=== PATIENT | female | born 1945 | race Caucasian/White ===

== ENCOUNTER 2016-08-28 19:54 | Inpatient (IN) | payer MEDICARE ==
[2016-08-28] MEDS ORDERED: SODIUM CHLORIDE 0.9% 1,000 ML IV ONE (20:16)
[2016-08-28] MEDS ORDERED: ONDANSETRON 4 MG/2 ML VIAL IVP STA (20:21)
[2016-08-28] MEDS ORDERED: HYDROmorphone 1 MG/ML 1 ML SYRINGE IVP STA ×2 (20:21→21:39)
--- NOTE | 2016-08-28 20:30 | ED ---
Abdominal Pain HPI - General Source: patient, RN notes reviewed Mode of arrival: wheelchair Limitations: no limitations <Rosemayr Gray - Last Filed: 08/28/16 21:41> <Donny Perry - Last Filed: 08/28/16 21:46> - General Chief Complaint: Abdominal Pain Stated Complaint: Abd Pain Time Seen by Provider: 08/28/16 20:10 - History of Present Illness Initial Comments: Patient is a 70 year-old female presents to the emergency room for evaluation of abdominal pain. Patient states she has had multiple abdominal surgeries in the past. Patient states she had an ileostomy placed from ulcerative colitis [address] [facility]. Patient states about 3 years ago she had a bowel obstruction. Patient states she feels like she has another bowel obstruction now. Patient states she had popcorn last night and began feeling extreme pain in her abdomen. Patient states worsen today. Patient states that her ileostomy bag has been empty the entire day. Patient states is very unusual for her. Patient also states she's been extremely nauseous. Patient states took 10 mg of Compazine for arrival with no relief of symptoms. Patient denies chest pain or shortness of breath. Patient assumes or chills. Patient denies headache or dizziness. (Rosemary Gray) - Related Data Home Medications Medication Instructions Recorded Confirmed Acyclovir [Zovirax] 200 mg PO Q6HR 08/17/13 08/29/15 Chlorzoxazone [Parafon Forte Dsc] 500 mg PO Q6HR 08/17/13 08/29/15 Meclizine [Antivert] 12.5 mg PO QID PRN 08/17/13 08/29/15 Pantoprazole Sodium [Protonix] 40 mg PO HS 08/17/13 08/29/15 Prochlorperazine [Compazine] 10 mg PO Q6H PRN 08/17/13 08/29/15 Solifenacin Succinate [Vesicare] 10 mg PO QAM 08/17/13 08/29/15 diphenhydrAMINE [Benadryl] 50 mg PO QID PRN 08/17/13 08/29/15 Biotin 5 mg PO QID 10/28/14 08/29/15 Fexofenadine HCl [Amna Allergy] 30 mg PO DAILY PRN 10/28/14 08/29/15 HYDROcodone/APAP 10-325MG [Bath 1 each PO Q6H PRN 10/28/14 08/29/15 10-325] Diclofenac Sodium [Voltaren] 50 mg PO QID 11/21/14 08/29/15 Zolpidem [Ambien] 10 mg PO HS PRN 11/21/14 08/29/15 Cyanocobalamin [Vitamin B-12] 1,000 mcg PO HS 05/21/15 08/29/15 Magnesium 500 mg PO DAILY 05/21/15 08/29/15 Potassium 99 mg PO DAILY 05/21/15 08/29/15 Previous Rx's Medication Instructions Recorded Ondansetron Odt [Zofran ODT] 4 mg PO Q8HR PRN #10 tab 08/29/15 Allergies Allergy/AdvReac Type Severity Reaction Status Date / Time aspirin Allergy Unknown Verified 08/28/16 20:08 codeine Allergy Unknown Verified 08/28/16 20:08 gemfibrozil [From Lopid] Allergy Anaphylaxis Verified 08/28/16 20:08 latex Allergy Swelling Verified 08/28/16 20:08 meloxicam [From Mobic] Allergy Rash/Hives Verified 08/28/16 20:08 Penicillins Allergy Rash/Hives Verified 08/28/16 20:08 propranolol HCl Allergy Unknown Verified 08/28/16 20:08 [From Inderal [place]] sucralfate [From Carafate] Allergy Anaphylaxis Verified 08/28/16 20:08 metronidazole [From Flagyl] AdvReac thrush Verified 08/28/16 20:08 propoxyphene HCl AdvReac Nausea & Verified 08/28/16 20:08 [From Darvon] Vomiting Review of Systems ROS Other: All systems not noted in ROS Statement are negative. <Rosemary Gray - Last Filed: 08/28/16 21:41> ROS Other: All systems not noted in ROS Statement are negative. <Donny Perry - Last Filed: 08/28/16 21:46> ROS Statement: Those systems with pertinent positive or pertinent negative responses have been documented in the HPI. Past Medical History Past Medical History: Asthma, COPD, CVA/TIA, Hyperlipidemia, Hypertension, Myocardial Infarction ([place]), Syncope Additional Past Medical History / Comment(s): Other HX: legally blind in left eye; eye sx="near sighted in 1 eye & far sighted in the other", ulcerative colitis,. bilateral carotid blockages being monitored by Dr. 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 Additional HX: low back pain following an injury many years ago after a syncopal episode at the top of stairs caused her to fall backwards down the stairs. She was 3 yrs in a hospital bed and 7. years in a w/c then learned to walk again. Last Myocardial Infarction Date:: 2009 History of Any Multi-Drug Resistant Organisms: None Reported Past Surgical History: Appendectomy, Cholecystectomy, Heart Catheterization, Hernia Repair, Hysterectomy, Joint Replacement, Orthopedic Surgery, Tonsillectomy Additional Past Surgical History / Comment(s): 2010 cath which was clear, low back surgeries X 2 and at least 20 procedures on her back, ileostomy, total left knee, abdominal hernia repair X 2, bilateral eyes cataracts removed, right shoulder sx x 2; large growth on back of head & inside of cheek removed Past Anesthesia/Blood Transfusion Reactions: Postoperative Nausea & Vomiting ( PONV) Additional Past Anesthesia/Blood Transfusion Reaction / Comment(s): Pt states she does not have PONV with every surgery- just sometimes. She also states her motion sickness is improving with age. Past Psychological History: No Psychological Hx Reported, PTSD Additional Psychological History / Comment(s): Pt lives at home with her and their pomeranian dog. She has weakness and low back pain and ambulates short distances only. The past few months she has had so much weakness, she is mostly. staying in bed. She does have a walker and a wheelchair. She also has a cane if she can find it; uses wheelchair outside of home Smoking Status: Former smoker Past Alcohol Use History: None Reported Additional Past Alcohol Use History / Comment(s): QUIT 30 YEARS AGO Past Drug Use History: None Reported - Past Family History Father Family Medical History: Cancer, CVA/TIA, Myocardial Infarction ([place]) Additional Family Medical History / Comment(s): Cancer was skin cancer "about 30 times". Mother Family Medical History: Cancer, Myocardial Infarction ([place]) Additional Family Medical History / Comment(s): Mother had lung, uterine and breast cancer. Sister(s) Family Medical History: Cancer Additional Family Medical History / Comment(s): leukemia, of stroke <Rosemary Gray - Last Filed: 08/28/16 21:41> General Exam Limitations: no limitations General appearance: alert, anxious Head exam: Present: atraumatic, normocephalic, normal inspection Eye exam: Present: normal appearance ENT exam: Present: normal exam Neck exam: Present: normal inspection Respiratory exam: Present: normal lung sounds bilaterally. Absent: respiratory distress Cardiovascular Exam: Present: regular rate, normal rhythm, normal heart sounds GI/Abdominal exam: Present: tenderness (Diffuse tenderness on palpation), other (Ileostomy bag in place) Extremities exam: Present: normal inspection Back exam: Present: normal inspection Neurological exam: Present: alert, oriented X3, CN II-XII intact, normal gait Psychiatric exam: Present: normal affect, normal mood Skin exam: Present: warm, dry, intact, normal color. Absent: rash <Rosemary Gray - Last Filed: 08/28/16 21:41> <Donny Perry - Last Filed: 08/28/16 21:46> - General Exam Comments Initial Comments: Laying in exam room, anxious secondary to pain (Rosemary Gray) Medical Decision Making - Lab Data Result diagrams: 08/28/16 20:49 08/28/16 20:49 <Rosemary Gray - Last Filed: 08/28/16 21:41> - Lab Data Result diagrams: 08/28/16 20:49 08/28/16 20:49 <Donny Perry - Last Filed: 08/28/16 21:46> - Medical Decision Making X-rays show small bowel obstruction. I discussed the case with Dr. Monet, the patient's surgeon is requesting a CAT scan at this time as the patient is being admitted. Also consultation with Dr. Cartagena for general medical care. Dr. Cartagena was notified. Dr. Perry (Donny Perry) - Lab Data Lab Results 08/28/16 08/28/16 08/28/16 Range/Units 20:49 20:49 20:49 WBC 10.4 (3.8-10.6) k/uL RBC 3.81 (3.80-5.40) m/uL Hgb 10.7 L (11.4-16.0) gm/dL Hct 33.2 L (34.0-46.0) % MCV 87.1 (80.0-100.0) fL MCH 28.1 (25.0-35.0) pg MCHC 32.3 (31.0-37.0) g/dL RDW 13.9 (11.5-15.5) % Plt Count 373 (150-450) k/uL Neutrophils % 83 % Lymphocytes % 10 % Monocytes % 5 % Eosinophils % 1 % Basophils % 0 % Neutrophils # 8.6 H (1.3-7.7) k/uL Lymphocytes # 1.0 (1.0-4.8) k/uL Monocytes # 0.5 (0-1.0) k/uL Eosinophils # 0.1 (0-0.7) k/uL Basophils # 0.0 (0-0.2) k/uL Hypochromasia Moderate Poikilocytosis Slight Sodium 133 L (137-145) mmol/L Potassium 4.0 (3.5-5.1) mmol/L Chloride 99 (98-107) mmol/L Carbon Dioxide 21 L (22-30) mmol/L Anion Gap 13 mmol/L BUN 11 (7-17) mg/dL Creatinine 0.83 (0.52-1.04) mg/dL Est GFR (MDRD) Af Amer >60 (>60 ml/min/1.73 sqM) Est GFR (MDRD) Non-Af >60 (>60 ml/min/1.73 sqM) Glucose 110 H (74-99) mg/dL Plasma Lactic Acid Kaveh 2.8 H* (0.7-2.0) mmol/L Calcium 9.2 (8.4-10.2) mg/dL Magnesium 1.6 (1.6-2.3) mg/dL Total Bilirubin 0.6 (0.2-1.3) mg/dL AST 52 H (14-36) U/L ALT 30 (9-52) U/L Alkaline Phosphatase 87 (38-126) U/L Total Protein 7.1 (6.3-8.2) g/dL Albumin 4.5 (3.5-5.0) g/dL Amylase 59 (30-110) U/L Lipase 79 (23-300) U/L Disposition Decision Date: 08/28/16 <Rosemary Gray - Last Filed: 08/28/16 21:41> <Donny Perry - Last Filed: 08/28/16 21:46> Clinical Impression: Small bowel obstruction Disposition: ADMITTED IP TO THIS [facility] Condition: Stable Referrals: Jim Ward MD [Primary Care Provider] - 1-2 days
[2016-08-28 21:06] LABS: Basophils % (A) 0 %; CH 27.7; Eosinophils # (A) 0.1 k/uL (0-0.7); Eosinophils % (A) 1 %; HCT 33.2 % (34.0-46.0); HDW 3.46; HGB 10.7 gm/dL (11.4-16.0); Hypochromasia Moderate; Luc # (Auto) 0.13; Luc % (Auto) 1; Lymphocytes % (A) 10 %; MCH 28.1 pg (25.0-35.0); MCHC 32.3 g/dL (31.0-37.0); MCV 87.1 fL (80.0-100.0); Mean Platelet Volume 6.4; Monocytes # (A) 0.5 k/uL (0-1.0); Monocytes % (A) 5 %; Neutrophils # (A) 8.6 k/uL (1.3-7.7); Neutrophils % (A) 83 %; Poikilocytosis Slight; RBC 3.81 m/uL (3.80-5.40); RDW 13.9 % (11.5-15.5); WBC 10.4 k/uL (3.8-10.6); WBC (Perox) 9.82
[2016-08-28 21:18] LABS: ALT 30 U/L (9-52); AST 52 U/L (14-36); Alkaline Phosphatase 87 U/L (38-126); Amylase 59 U/L (30-110); Anion Gap 13 mmol/L; Blood Urea Nitrogen 11 mg/dL (7-17); Calcium 9.2 mg/dL (8.4-10.2); Carbon Dioxide 21 mmol/L (22-30); Chloride 99 mmol/L (98-107); Glucose 110 mg/dL (74-99); Magnesium 1.6 mg/dL (1.6-2.3); Non-African American GFR(MDRD) >60 (>60 ml/min/1.73 sqM); Sodium 133 mmol/L (137-145); Total Bilirubin 0.6 mg/dL (0.2-1.3); Total Protein 7.1 g/dL (6.3-8.2)
--- NOTE | 2016-08-28 21:19 | XR ---
EXAMINATION TYPE: XR KUB DATE OF EXAM: 08/28/2016 9:04 PM COMPARISON: NONE INDICATION: TECHNIQUE: Single view abdomen upright abdomen FINDINGS: Multiple air-fluid levels are within small bowel loops. Correlate for small bowel obstruction. No col onic bowel gas is evident. Scoliosis is present. Psoas margins are normal. Organomegaly is not evident. There are advanced degen erative changes at the bilateral hips. IMPRESSION: 1. Multiple air-fluid levels suspicious for small bowel obstruction. Report was called to emergency r oom by Dr. Posada by telephone at time of interpretation 2115 hours 08/31/2016
[2016-08-28] MEDS ORDERED: NALOXONE 0.4 MG/ML 1 ML VIAL IV PRN (21:35)
[2016-08-28] MEDS ORDERED: ONDANSETRON 4 MG/2 ML VIAL IVP PRN (21:35)
[2016-08-28] MEDS ORDERED: IOHEXOL 350 MG/ML 25 ML BOTTLE (ORAL USE) PO PRN (21:38)
[2016-08-28] MEDS ORDERED: RX INFO: IV CONTRAST WAS GIVEN 1 EACH MISC MISCELLANE PRN (21:38)
[2016-08-28] MEDS ORDERED: METOCLOPRAMIDE 5 MG/ML 2 ML VIAL IVP STA (22:31)
[2016-08-28] MEDS ORDERED: DIAZEPAM 5 MG/ML 2 ML SYRINGE IVP STA (22:42)
--- NOTE | 2016-08-28 23:55 | CT ---
EXAM: CT Abdomen and Pelvis With Intravenous Contrast CLINICAL HISTORY: Reason: Pain TECHNIQUE: Axial computed tomography images of the abdomen and pelvis with intravenous contrast. CTDI is 29.00 mGy and DLP is 1128.80 mGy-cm. This CT exam was performed using one or more of the following dose reduction techniques: automated exposure control, adjustment of the mA and/or kV according to patient size, and/or use of iterative reconstruction technique. COMPARISON: 02/22/15 CT. FINDINGS: Lower thorax: Stable linear atelectasis/scarring at the lung bases, and multifocal coronary artery calcification. ABDOMEN: Liver: There is again generalized hepatic steatosis, that has increased in degree. Gallbladder and bile ducts: Unremarkable. No calcified stones. No ductal dilation. Pancreas: Unremarkable. No mass. No ductal dilation. Spleen: Unremarkable. No splenomegaly. Adrenals: Unremarkable. No mass. Kidneys and ureters: Kidney stable including small posterior left renal cyst and bilateral renal parenchymal scarring. No hydronephrosis. Stomach and bowel: There is again a large left anterolateral ventral wall small bowel containing hernia, just lateral to the diverting ostomy site. There are now dilated small bowel loops present within the abdomen and pelvis, including distal small bowel feces within the loop just deep to the ostomy site, suggesting the presence of small bowel obstruction perhaps due to stricture or wall thickening of the ostomy loop. Interval resection of remaining distal colon, now with total colectomy. Prior surgery at the GE junction. Appendix: See above. PELVIS: Bladder: Unremarkable. No mass. Reproductive: Post hysterectomy. ABDOMEN and PELVIS: Intraperitoneal space: There is again a small amount of free fluid present. No abscess or free air. Bones/joints: There is again mild lumbar levoscoliosis with multilevel degenerative changes throughout the spine and also notably within both hips. Sclerotic density to the right of midline within L1 is unchanged. Alignment stable including grade 1 anterolisthesis at L3-4 and L4-5. Vasculature: No abdominal aortic aneurysm. Lymph nodes: No enlarged lymph nodes. IMPRESSION: 1. New findings of small bowel obstruction at the level of the left lower quadrant ostomy site, as above. 2. There is again a small volume of free fluid without evidence of free air, abscess or pneumatosis. 3. Interval resection of the remaining distal colon. 4. Interval increase in hepatic steatosis.
[2016-08-29] MEDS: HYDROmorphone 1 MG/ML 1 ML SYRINGE IV PRN ×8 (00:39→22:36)
[2016-08-29] MEDS: SODIUM CHLORIDE 0.9% 1,000 ML IV SCH ×3 (04:49→22:36)
[2016-08-29] MEDS ORDERED: ONDANSETRON 4 MG/2 ML VIAL IVP PRN (07:30)
[2016-08-29] MEDS ORDERED: ONDANSETRON 4 MG/2 ML VIAL ONE (07:35)
[2016-08-29] MEDS: ONDANSETRON 4 MG/2 ML VIAL IVP PRN ×4 (07:40→22:37)
[2016-08-29 09:23] LABS: Basophils % (A) 0 %; CH 27.1; CHCM 30.3; Eosinophils % (A) 0 %; HCT 37.5 % (34.0-46.0); HGB 11.8 gm/dL (11.4-16.0); Hypochromasia Marked; Immature Gran Flag Slight; Luc % (Auto) 1; Lymphocytes % (A) 12 %; MCH 28.2 pg (25.0-35.0); MCHC 31.4 g/dL (31.0-37.0); MCV 89.8 fL (80.0-100.0); Mean Platelet Volume 7.5; Monocytes # (A) 0.5 k/uL (0-1.0); Monocytes % (A) 6 %; Neutrophils # (A) 6.9 k/uL (1.3-7.7); Neutrophils % (A) 80 %; RBC 4.18 m/uL (3.80-5.40); RDW 14.1 % (11.5-15.5); WBC 8.5 k/uL (3.8-10.6); WBC (Perox) 8.53
[2016-08-29 09:38] LABS: ALT 85 U/L (9-52); AST 163 U/L (14-36); Alkaline Phosphatase 103 U/L (38-126); Anion Gap 13 mmol/L; Blood Urea Nitrogen 12 mg/dL (7-17); Calcium 9.2 mg/dL (8.4-10.2); Carbon Dioxide 21 mmol/L (22-30); Chloride 103 mmol/L (98-107); Glucose 126 mg/dL (74-99); Non-African American GFR(MDRD) >60 (>60 ml/min/1.73 sqM); Potassium 4.2 mmol/L (3.5-5.1); Sodium 137 mmol/L (137-145); Total Bilirubin 0.8 mg/dL (0.2-1.3); Total Protein 7.2 g/dL (6.3-8.2)
--- NOTE | 2016-08-29 10:01 | P.CON ---
Consult Note - . Assessment/Plan:: Chief complaint: Abdominal pain History of present illness: The patient is a 70-year-old female who presented to the emergency room yesterday with repeat episodes of abdominal discomfort and pain associated with recurrent nausea and vomiting. No hematochezia or blood in her ileostomy. Patient does have a ileostomy in place and throughout the day yesterday and throughout the night she has not had any production. She relates eating some popcorn prior to the episode. Patient does have a history of ulcerative colitis for which she has had the ileostomy in place and had surgery at [facility] initially about 7 years before and more recently 3 years ago she apparently had some sort of obstruction and has had further surgery for removal of the rest of her colon and hernia repair. Past medical history: As mentioned above patient has had the surgeries and history of ulcerative colitis. Ileostomy. There is a history of seizure disorder. History of gastroparesis. Previous history of hypertension Patient has had chronic pain syndrome regarding diffuse degenerative joint disease and back pain for which she uses analgesics and anti-inflammatory medication regularly. Gastroesophageal reflux. Recurrent vertigo for which she uses meclizine Hypercholesterolemia Previous smoking history and has had previous episodes of asthma and pneumonia. Urinary incontinence Questionable history of myocardial infarction. History of carotid vascular disease followed by Dr. Pappas. Question of history of previous TIA. Previous surgical history: Includes a previous appendectomy, cholecystectomy, hernia repair, hysterectomy and tonsillectomy. The patient also had bladder suspension surgery Previous lap band surgery which has subsequently been removed Vagotomy Previous lumbar surgery ALLERGIES and intolerances: Atorvastatin, Keflex and penicillins, Inderal and codeine. Lopid. Latex ALLERGY. Home medications: Acyclovir 200 mg every 6 hours for recurrent cold sores Parafon forte 500 mg every 6 hours Antivert 12.5 daily 4 times a day as needed for dizziness Protonix 40 mg at at bedtime Compazine 10 mg every 6 hours as needed for nausea and vomiting Vesicare 10 mg for incontinence Benadryl 50 mg 4 times a day if needed for itching or rash Biotin 5 mg 4 times a day Fexofenadine as needed for ALLERGY [place] 10-325 one every 6 hours for pain Voltaren 50 mg 4 times a day Ambien 10 mg at at bedtime for sleep as needed Vitamin B12 thousand units at at bedtime Magnesium 500 mg daily and potassium 99 mg daily. Family history: Positive for history of coronary artery disease and breast cancer in her mother. History of uterine cancer and diabetes. Social history: Patient lives locally with her . She is a former smoker but quit 3-5 years ago. Physical examination: The patient lying in bed. In no acute distress. Vital signs reveal temperature 98.1 with a pulse of 96, regular. Respirations 15 and nonlabored. Blood pressure 98/61 and she is 95% saturated on room air. Head and neck exam unremarkable. Neck supple without adenopathy or definitive bruits auscultated. Breasts exam did not reveal any palpable lesions. Lungs clear to auscultation. Heart tones regular without murmurs or rubs appreciated. Abdomen reveals ileostomy present in the left lower quadrant with some lateral bulging. Bowel sounds are hypoactive. There is some tenderness diffusely to palpation. No rebound guarding or masses detected. Pelvic and rectal deferred. Extremities reveal no edema. Neurologic exam reveals surgically alert and oriented. Cranial nerves intact. Moving all extremities without focal weakness noted. Laboratory results: White count is been between 8 and 10,000. Hemoglobin on presentation 10.7 and this morning 11.8. Platelet count good at 332. Sodium 137 this morning with potassium 4.2 and a CO2 content of 21. Blood urea nitrogen of 12 with a creatinine 0.78 giving her GFR greater than 60. Blood sugar 126. Initial plasma lactic acid to level 2.8. AST value has risen from 50-263 this morning and ALT on admission was 30 and is now at 85. Amylase and lipase were normal. Albumin 4.4. EKG revealed a regular sinus rhythm without evidence of acute changes. Radiologic studies: Patient had a abdominal x-ray which revealed multiple air-fluid levels which was suspicious for small bowel obstruction. Subsequent CAT scan of the abdomen and pelvis shows consistent with small bowel obstruction at the level of the left quadrant ostomy site. No definite evidence for abscess. Impressions: Overall this is a 70-year-old female appears to present with small bowel obstruction. Patient does have history of previous ulcerative colitis and ileostomy. She does have an elevated lactic acid level likely related to hypoperfusion and dehydration from the repetitive nausea and vomiting. She does have other comorbidities as listed in the past medical history above. Plans: Patient will be evaluated by surgery. At this point clinically cardiovascular status appears stable if surgery is needed. Laboratory values also stable with normal electrolytes and renal function. This was discussed with patient at bedside. Questions answered. EKG shows no evidence of any acute ischemic changes.
--- NOTE | 2016-08-29 10:34 | P.GSHP ---
History of Present Illness H&P Date: 08/29/16 Chief Complaint: Bowel obstruction Patient minute through the emergency department last night with bowel obstruction. The patient has a history of previous ulcerative colitis. In the past she underwent subtotal colectomy with ileostomy. She has undergone several surgeries for that including ileostomy hernia repair with movement of the stoma. Last year she was having frequent episodes of rectal bleeding from her rectal stump. She was seen at [facility] and underwent resection of the majority of the remainder of her rectal stump. She was in her normal state of health until Tuesday evening when she started noticing some crampy abdominal pain. Simultaneously she noticed decreased ostomy output. The patient said that she had a large volume of popcorn that day and has had issues with that in the past. She does have a known peristomal hernia. That has remained soft. She is still not had any significant fluid or flatus from the ileostomy at this time. CAT scan was performed which shows dilated bowel loops all the way up to the stoma. There is some feculent appearing material in the distal small bowel that I suspect represents ingested food. She has had episodes of nausea and vomiting. Attempts at nasogastric tube placement were unsuccessful and she is refusing any further attempts at this time. - Review of Systems Comment: The patient denies any acute changes in his vision or hearing, no dysphagia or odynophagia, no chest pain or shortness of breath, no dysuria or hematuria, no headache, no runny nose, no rectal bleeding or melena, no unexplained weight loss Past Medical History Past Medical History: Asthma, COPD, CVA/TIA, Hyperlipidemia, Hypertension, Myocardial Infarction ([place]), Syncope Additional Past Medical History / Comment(s): Other HX: legally blind in left eye; eye sx="near sighted in 1 eye & far sighted in the other", ulcerative colitis,. bilateral carotid blockages being monitored by Dr. 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 Additional HX: low back pain following an injury many years ago after a syncopal episode at the top of stairs caused her to fall backwards down the stairs. She was 3 yrs in a hospital bed and 7. years in a w/c then learned to walk again. Last Myocardial Infarction Date:: 2009 History of Any Multi-Drug Resistant Organisms: None Reported Past Surgical History: Appendectomy, Cholecystectomy, Heart Catheterization, Hernia Repair, Hysterectomy, Joint Replacement, Orthopedic Surgery, Tonsillectomy Additional Past Surgical History / Comment(s): 2010 cath which was clear, low back surgeries X 2 and at least 20 procedures on her back, ileostomy, total left knee, abdominal hernia repair X 2, bilateral eyes cataracts removed, right shoulder sx x 2; large growth on back of head & inside of cheek removed Past Anesthesia/Blood Transfusion Reactions: Postoperative Nausea & Vomiting ( PONV) Additional Past Anesthesia/Blood Transfusion Reaction / Comment(s): Pt states she does not have PONV with every surgery- just sometimes. She also states her motion sickness is improving with age. Past Psychological History: No Psychological Hx Reported, PTSD Additional Psychological History / Comment(s): Pt lives at home with her and their pomeranian dog. She has weakness and low back pain and ambulates short distances only. The past few months she has had so much weakness, she is mostly. staying in bed. She does have a walker and a wheelchair. She also has a cane if she can find it; uses wheelchair outside of home Smoking Status: Former smoker Past Alcohol Use History: None Reported Additional Past Alcohol Use History / Comment(s): QUIT 30 YEARS AGO Past Drug Use History: None Reported - Past Family History Father Family Medical History: Cancer, CVA/TIA, Myocardial Infarction ([place]) Additional Family Medical History / Comment(s): Cancer was skin cancer "about 30 times". Mother Family Medical History: Cancer, Myocardial Infarction ([place]) Additional Family Medical History / Comment(s): Mother had lung, uterine and breast cancer. Sister(s) Family Medical History: Cancer Additional Family Medical History / Comment(s): leukemia, of stroke Medications and Allergies Home Medications Medication Instructions Recorded Confirmed Type Acyclovir [Zovirax] 200 mg PO Q6HR 08/17/13 08/29/16 History Chlorzoxazone [Parafon Forte Dsc] 500 mg PO Q6HR 08/17/13 08/29/16 History Meclizine [Antivert] 12.5 mg PO QID PRN 08/17/13 08/29/16 History Pantoprazole Sodium [Protonix] 40 mg PO HS 08/17/13 08/29/16 History Prochlorperazine [Compazine] 10 mg PO Q6H PRN 08/17/13 08/29/16 History Solifenacin Succinate [Vesicare] 10 mg PO QAM 08/17/13 08/29/16 History diphenhydrAMINE [Benadryl] 50 mg PO QID PRN 08/17/13 08/29/16 History Biotin 5 mg PO QID 10/28/14 08/29/16 History Fexofenadine HCl [Amna Allergy] 30 mg PO DAILY PRN 10/28/14 08/29/16 History HYDROcodone/APAP 10-325MG [[place] 1 tab PO Q6H PRN 10/28/14 08/29/16 History 10-325] Diclofenac Sodium [Voltaren] 50 mg PO QID 11/21/14 08/29/16 History Zolpidem [Ambien] 10 mg PO HS PRN 11/21/14 08/29/16 History Cyanocobalamin [Vitamin B-12] 1,000 mcg PO HS 05/21/15 08/29/16 History Magnesium 500 mg PO DAILY 05/21/15 08/29/16 History Potassium 99 mg PO DAILY 05/21/15 08/29/16 History Allergies Allergy/AdvReac Type Severity Reaction Status Date / Time aspirin Allergy Unknown Verified 08/29/16 08:43 codeine Allergy Unknown Verified 08/29/16 08:43 gemfibrozil [From Lopid] Allergy Anaphylaxis Verified 08/29/16 08:43 latex Allergy Swelling Verified 08/29/16 08:43 meloxicam [From Mobic] Allergy Rash/Hives Verified 08/29/16 08:43 Penicillins Allergy Rash/Hives Verified 08/29/16 08:43 propranolol HCl Allergy Unknown Verified 08/29/16 08:43 [From Inderal [place]] sucralfate [From Carafate] Allergy Anaphylaxis Verified 08/29/16 08:43 metronidazole [From Flagyl] AdvReac thrush Verified 08/29/16 08:43 propoxyphene HCl AdvReac Nausea & Verified 08/29/16 08:43 [From Darvon] Vomiting Surgical - Exam Vital Signs Temp Pulse Resp BP Pulse Ox 98.9 F 89 18 103/70 96 08/28/16 20:06 08/28/16 20:06 08/28/16 20:06 08/28/16 20:06 08/28/16 20:06 Physical exam: General: Well-developed, well-nourished HEENT: Normocephalic, sclerae nonicteric Abdomen: Mild distention, ostomy pink, digital palpation of the ostomy reveals no stricture formation, able to palpate some stool-like material just below the level of the fascia. Unable to mobilize that any further at this time. Parastomal hernia soft without significant tenderness Extremities: No edema Neuro: Alert and oriented Results - Labs 08/29/16 08:17 08/29/16 08:17 Abnormal Lab Results - Last 24 Hours (Table) 08/28/16 08/28/16 08/28/16 Range/Units 20:49 20:49 20:49 Hgb 10.7 L (11.4-16.0) gm/dL Hct 33.2 L (34.0-46.0) % Neutrophils # 8.6 H (1.3-7.7) k/uL Sodium 133 L (137-145) mmol/L Carbon Dioxide 21 L (22-30) mmol/L Glucose 110 H (74-99) mg/dL Plasma Lactic Acid Kaveh 2.8 H* (0.7-2.0) mmol/L AST 52 H (14-36) U/L ALT (9-52) U/L 08/29/16 Range/Units 08:17 Hgb (11.4-16.0) gm/dL Hct (34.0-46.0) % Neutrophils # (1.3-7.7) k/uL Sodium (137-145) mmol/L Carbon Dioxide 21 L (22-30) mmol/L Glucose 126 H (74-99) mg/dL Plasma Lactic Acid Kaveh (0.7-2.0) mmol/L AST 163 H (14-36) U/L ALT 85 H (9-52) U/L Diabetes panel 08/28/16 08/29/16 Range/Units 20:49 08:17 Sodium 133 L 137 (137-145) mmol/L Potassium 4.0 4.2 (3.5-5.1) mmol/L Chloride 99 103 (98-107) mmol/L Carbon Dioxide 21 L 21 L (22-30) mmol/L BUN 11 12 (7-17) mg/dL Creatinine 0.83 0.78 (0.52-1.04) mg/dL Glucose 110 H 126 H (74-99) mg/dL Calcium 9.2 9.2 (8.4-10.2) mg/dL AST 52 H 163 H (14-36) U/L ALT 30 85 H (9-52) U/L Alkaline Phosphatase 87 103 (38-126) U/L Total Protein 7.1 7.2 (6.3-8.2) g/dL Albumin 4.5 4.4 (3.5-5.0) g/dL Calcium panel 08/28/16 08/29/16 Range/Units 20:49 08:17 Calcium 9.2 9.2 (8.4-10.2) mg/dL Albumin 4.5 4.4 (3.5-5.0) g/dL Pituitary panel 08/28/16 08/29/16 Range/Units 20:49 08:17 Sodium 133 L 137 (137-145) mmol/L Potassium 4.0 4.2 (3.5-5.1) mmol/L Chloride 99 103 (98-107) mmol/L Carbon Dioxide 21 L 21 L (22-30) mmol/L BUN 11 12 (7-17) mg/dL Creatinine 0.83 0.78 (0.52-1.04) mg/dL Glucose 110 H 126 H (74-99) mg/dL Calcium 9.2 9.2 (8.4-10.2) mg/dL Adrenal panel 08/28/16 08/29/16 Range/Units 20:49 08:17 Sodium 133 L 137 (137-145) mmol/L Potassium 4.0 4.2 (3.5-5.1) mmol/L Chloride 99 103 (98-107) mmol/L Carbon Dioxide 21 L 21 L (22-30) mmol/L BUN 11 12 (7-17) mg/dL Creatinine 0.83 0.78 (0.52-1.04) mg/dL Glucose 110 H 126 H (74-99) mg/dL Calcium 9.2 9.2 (8.4-10.2) mg/dL Total Bilirubin 0.6 0.8 (0.2-1.3) mg/dL AST 52 H 163 H (14-36) U/L ALT 30 85 H (9-52) U/L Alkaline Phosphatase 87 103 (38-126) U/L Total Protein 7.1 7.2 (6.3-8.2) g/dL Albumin 4.5 4.4 (3.5-5.0) g/dL Assessment and Plan (1) Small bowel obstruction Narrative/Plan: Keep nothing by mouth for now. If the patient has further vomiting would consider reattempt at nasogastric tube placement. Continue observation of the bowel obstruction at this time would consider gentle enema through the ileostomy if no output throughout the day. Status: Acute
[2016-08-29 10:40] LABS: Manual Review Performed
[2016-08-29 14:56] VITALS: RESP 16
[2016-08-29] MEDS: METOCLOPRAMIDE 5 MG/ML 2 ML VIAL IVP PRN (19:23)
[2016-08-30] MEDS: SODIUM CHLORIDE 0.9% 1,000 ML IV SCH ×3 (04:17→15:06)
[2016-08-30] MEDS: ONDANSETRON 4 MG/2 ML VIAL IVP PRN ×4 (04:19→23:48)
[2016-08-30] MEDS: HYDROmorphone 1 MG/ML 1 ML SYRINGE IV PRN ×6 (04:20→23:48)
[2016-08-30] MEDS: METOCLOPRAMIDE 5 MG/ML 2 ML VIAL IVP PRN ×3 (06:25→20:41)
--- NOTE | 2016-08-30 07:00 | XR ---
EXAMINATION TYPE: XR abdomen complete w decub DATE OF EXAM ORDERED: 08/30/2016 6:49 AM HISTORY: sbo. COMPARISON: Previous study dated 08/28/2016. FINDINGS: There has been previous epigastric surgery. There is a moderate S-shaped scoliosis convex to the right in the thoracic region and to the left in the lumbar region. An NG tube is in place. There is improvement in the degree of small bowel dilatation. There continues to be multiple air-fluid levels. There is no evidence of obstruction or free air. IMPRESSION: PARTIAL DECOMPRESSION OF THE PATIENT'S SMALL BOWEL OBSTRUCTION.
--- NOTE | 2016-08-30 07:56 | P.PN ---
Progress Note - Text The patient is a 70-year-old female who 2 days previous presented with small bowel obstruction. Patient has had multiple previous abdominal surgery related to her ulcerative colitis. She has an ileostomy. She has not had any further drainage. NG tube is presently in place. Patient denies any chest pain or shortness of breath. Vital signs reveal temperature 98.1 with a pulse of 70-100. Respirations are 16 and nonlabored. Blood pressure 114/77 and she is 93% saturated on room air. Lungs are clear. Heart tones are regular. Abdomen does reveal some mild distention and some diffuse tenderness but no rebound or guarding noted. No unusual edema. She is alert and oriented without focal deficits. Laboratory results: CBC was unremarkable yesterday. CO2 content slightly low at 21. Blood sugar was 126. Her plasmic lactic acid level decreased from 2.8 down to 2.1. Impressions and plans: Patient admitted with small bowel obstruction. She has been seen by surgery and note regarded. She is on NG tube suction. X-rays do show some improvement in the gas pattern and some decompression according to radiology. We'll await further recommendations from surgery. Discussed with patient at bedside.
[2016-08-30] MEDS: PANTOPRAZOLE 40 MG/10 ML VIAL IVP SCH (08:32)
[2016-08-30] MEDS ORDERED: HYDROmorphone 1 MG/ML 1 ML SYRINGE IVP STA (12:44)
--- NOTE | 2016-08-30 13:11 | P.PN ---
Subjective Principal diagnosis: Bowel obstruction Patient overall does feel somewhat better today. A nasogastric tube was finally placed yesterday with some relief of her symptoms. She did have a small amount of hard stool from the stoma this morning. Still has crampy discomfort however. She is afebrile. Objective - Vital Signs Vital signs: Vital Signs Temp 99.1 F 08/30/16 07:00 Pulse 96 08/30/16 10:32 Resp 16 08/30/16 07:00 BP 114/76 08/30/16 10:32 Pulse Ox 96 08/30/16 07:00 Intake & Output 08/29/16 08/30/16 08/30/16 18:59 06:59 18:59 Intake Total 1375 Output Total 750 450 Balance -750 925 Intake: Intake, IV Titration 1375 Amount Sodium Chloride 0.9% 1, 1375 000 ml @ 125 mls/hr IV . Q8H DARNELL Rx#:[id number] Output: Gastric Drainage 500 450 Emesis 250 Other: Voiding Method Toilet Toilet Toilet # Voids 1 1 1 - Exam Abdomen: Soft, mild distention, mild diffuse tenderness - Labs CBC & Chem 7: 08/29/16 08:17 08/29/16 08:17 Assessment and Plan (1) Small bowel obstruction Narrative/Plan: Clinical scenario discussed again with the patient. Today's x-rays are improved however I believe the bowel obstruction persists. At the bedside approximately 200 mL of warm soapy solution was used as an enema through the ostomy through a 18-[place] Neil catheter. In doing so we did see some additional hard stool evacuate. The patient was able to identify the types of foods that were coming out at that point. We'll continue observation today. Reevaluate and possibly repeat enema tomorrow. Status: Acute
[2016-08-31] MEDS: HYDROmorphone 1 MG/ML 1 ML SYRINGE IV PRN ×2 (03:03→07:26)
[2016-08-31] MEDS: METOCLOPRAMIDE 5 MG/ML 2 ML VIAL IVP PRN ×2 (03:03→10:49)
[2016-08-31] MEDS: SODIUM CHLORIDE 0.9% 1,000 ML IV SCH ×2 (03:41→07:27)
[2016-08-31 07:27] VITALS: BP 108/73; PULSE 90; TEMP 99.1
[2016-08-31] MEDS: ONDANSETRON 4 MG/2 ML VIAL IVP PRN (07:29)
--- NOTE | 2016-08-31 07:56 | P.PN ---
Progress Note - Text The patient is a 70-year-old female who 3 days ago presented with a small bowel obstruction. Patient has a ileostomy secondary to previous ulcerative colitis and surgeries. Apparently through the evening she states she had to empty her ileostomy bag several times. She denies any new complaints. Her vital signs reveal temperature of 99.1 with a pulse of 90 and respirations 16 and nonlabored. Blood pressure 108/73 and she is 96% saturated on room air. Impressions and plans: Patient has undergone decompression with NG tube suction. Also gentle enema had been given by surgery to the ileostomy. It appears the obstruction is relieved. Patient anticipating discharge to home. We'll await further opinion from surgery. From a medical standpoint the patient may resume her home medications upon discharge and office follow-up. Surgical follow-up. Call if any questions or concerns.
[2016-08-31] MEDS: PANTOPRAZOLE 40 MG/10 ML VIAL IVP SCH (08:30)
[2016-08-31] MEDS ORDERED: HYDROcodone/APAP 10-325MG 1 EACH TAB PO PRN (10:34)
--- NOTE | 2016-08-31 12:30 | P.DS ---
Providers Date of admission: 08/28/16 21:45 Expected date of discharge: 08/31/16 Attending physician: Seng Lawson Consults: 08/28/16 21:36 Consult Physician Urgent Consulting Provider: Jim Ward Consult Reason/Comments: Small bowel obstruction Do you want consulting provider notified?: Already Contacted Primary care physician: Jim Ward - Discharge Diagnosis(es) (1) Small bowel obstruction Patient is admitted with small bowel obstruction. The patient had food-like material that was obstructing her small bowel distally just below the level of the fascia at the site of her end ileostomy. The nasogastric tube was placed with some relief of her symptoms. Gentle enemas through the stoma using a Neil catheter took place which eventually lead to resolution and passage of the material. The patient stated it was popcorn today given her this trouble. She is now symptom free. She is tolerating her diet. Of note her ileum at the ileostomy appeared completely normal on examination. We'll discharge today with plans for outpatient follow-up. Current Visit: Yes Status: Acute Patient Condition at Discharge: Stable Plan - Discharge Summary Discharge Medication List Acyclovir [Zovirax] 200 mg PO Q6HR 08/17/13 [History] Chlorzoxazone [Parafon Forte Dsc] 500 mg PO Q6HR 08/17/13 [History] Meclizine [Antivert] 12.5 mg PO QID PRN 08/17/13 [History] Pantoprazole Sodium [Protonix] 40 mg PO HS 08/17/13 [History] Prochlorperazine [Compazine] 10 mg PO Q6H PRN 08/17/13 [History] Solifenacin Succinate [Vesicare] 10 mg PO QAM 08/17/13 [History] diphenhydrAMINE [Benadryl] 50 mg PO QID PRN 08/17/13 [History] Biotin 5 mg PO QID 10/28/14 [History] Fexofenadine HCl [Amna Allergy] 30 mg PO DAILY PRN 10/28/14 [History] HYDROcodone/APAP 10-325MG [[place] 10-325] 1 tab PO Q6H PRN 10/28/14 [History] Diclofenac Sodium [Voltaren] 50 mg PO QID 08/13/15 [History] Zolpidem [Ambien] 10 mg PO HS PRN 11/21/14 [History] Cyanocobalamin [Vitamin B-12] 1,000 mcg PO HS 05/21/15 [History] Magnesium 500 mg PO DAILY 05/21/15 [History] Potassium 99 mg PO DAILY 05/21/15 [History] Ondansetron Odt [Zofran ODT] 4 mg PO Q8HR PRN #10 tab 08/29/15 [Rx] Follow up Appointment(s)/Referral(s): Jim Ward MD [Primary Care Provider] - 1-2 days
== END 2016-08-31 13:40 | disposition home or self-care (01) | DRG 390 ==
LOC: EC 19:54 → 3SUR 21:45
PROVIDERS: ADMIT Surgery; ATTEND Surgery
DX: K56.60 Unspecified intestinal obstruction (principal); J44.9 Chronic obstructive pulmonary disease, unspecified; I65.23 Occlusion and stenosis of bilateral carotid arteries; I69.998 Other sequelae following unspecified cerebrovascular disease; K31.84 Gastroparesis; I10 Essential (primary) hypertension; E78.5 Hyperlipidemia, unspecified; E78.00 Pure hypercholesterolemia, unspecified; E86.0 Dehydration; K46.9 Unspecified abdominal hernia without obstruction or gangrene; G40.909 Epilepsy, unspecified, not intractable, without status epilepticus; G89.4 Chronic pain syndrome; H54.42 Blindness, left eye, normal vision right eye; I25.2 Old myocardial infarction; J45.909 Unspecified asthma, uncomplicated; K21.9 Gastro-esophageal reflux disease without esophagitis; M54.5 Low back pain; R32 Unspecified urinary incontinence; F43.10 Post-traumatic stress disorder, unspecified; I69.911 Memory deficit following unspecified cerebrovascular disease; M19.90 Unspecified osteoarthritis, unspecified site; Z79.899 Other long term (current) drug therapy; Z87.891 Personal history of nicotine dependence; Z96.652 Presence of left artificial knee joint; Z88.0 Allergy status to penicillin; Z91.040 Latex allergy status; Z88.6 Allergy status to analgesic agent; Z88.5 Allergy status to narcotic agent; Z93.2 Ileostomy status; Z82.49 Family history of ischemic heart disease and other diseases of the circulatory system
CPT/HCPCS: 36415; 74000; 74020; 74177; 80053; 82150; 83605; 83690; 83735; 85025; 93005; 96361; 96374; 96375; 96376; 99285

== ENCOUNTER → 2017-06-28 | Outpatient (CLI) | payer MEDICARE ==
[2017-06-28 14:55] LABS: ALT 27 U/L (9-52); AST 35 U/L (14-36); Albumin 4.6 g/dL (3.5-5.0); Alkaline Phosphatase 92 U/L (38-126); Anion Gap 14 mmol/L; Blood Urea Nitrogen 11 mg/dL (7-17); Calcium 9.6 mg/dL (8.4-10.2); Carbon Dioxide 20 mmol/L (22-30); Chloride 104 mmol/L (98-107); Cholesterol 272 mg/dL (<200); Glucose 92 mg/dL (74-99); HDL Cholesterol 89 mg/dL (40-60); LDL Cholesterol,Calculated 111 mg/dL (0-99); Potassium 4.6 mmol/L (3.5-5.1); Sodium 138 mmol/L (137-145); Total Bilirubin 0.6 mg/dL (0.2-1.3); Total Protein 7.5 g/dL (6.3-8.2); Triglycerides 362 mg/dL (<150)
[2017-06-28 15:08] LABS: HCT 34.7 % (34.0-46.0); HGB 10.8 gm/dL (11.4-16.0); Hypochromasia Moderate; MCHC 31.2 g/dL (31.0-37.0); MCV 83.5 fL (80.0-100.0); Mean Platelet Volume 8.7; Platelet Count 253 k/uL (150-450); RBC 4.16 m/uL (3.80-5.40); RDW 15.5 % (11.5-15.5); WBC 7.7 k/uL (3.8-10.6)
[2017-06-28 16:06] LABS: Band Neutrophils % 3 %; Lymphocytes # (M) 2.31 k/uL (1.0-4.8); Monocytes # (M) 0.08 k/uL (0-1.0); Neutrophils % (M) 66 %; Nucleated Red Blood Cells 0 /100 WBC (0-0); Total Cells Counted 100
[2017-06-28 16:07] LABS: Reactive Lymphocytes Present
== END | disposition home or self-care (01) ==
LOC: LABWHC1 13:58
PROVIDERS: ATTEND Internal Medicine
DX: E78.4 Other hyperlipidemia (principal); E87.8 Other disorders of electrolyte and fluid balance, not elsewhere classified; R53.83 Other fatigue
CPT/HCPCS: 36415; 80053; 80061; 85025

== ENCOUNTER → 2017-11-28 | Outpatient (CLI) | payer MEDICARE ==
[2017-11-28 17:01] LABS: Appearance,Urine Cloudy (Clear); Bacteria,Urine Moderate /hpf; Bilirubin,Urine Negative (Negative); Blood,Urine Negative (Negative); Color,Urine Light Yellow; Glucose,Urine (UA) Negative (Negative); Hyaline Casts,Urine 15 /lpf (0-2); Ketones,Urine Negative (Negative); Leukocyte Esterase,Urine Large (Negative); Mucus,Urine Rare /hpf; Nitrite,Urine Negative (Negative); PH, Urine 5.5 (5.0-8.0); Protein,Urine Negative (Negative); RBC,Urine 1 /hpf (0-5); Squamous Epithelial Cell,Urine <1 /hpf (0-4); Urobilinogen,Urine <2.0 mg/dL (<2.0); WBC,Urine 34 /hpf (0-5)
== END | disposition home or self-care (01) ==
LOC: LABPAT 14:47
PROVIDERS: ATTEND Orthopaedic Surgery
DX: Z01.812 Encounter for preprocedural laboratory examination (principal)
CPT/HCPCS: 81001; 87070

== ENCOUNTER → 2017-12-01 | Outpatient (CLI) | payer MEDICARE ==
[2017-12-01 17:49] LABS: HCT 40.1 % (34.0-46.0); HGB 12.2 gm/dL (11.4-16.0); Hypochromasia Slight; MCH 30.3 pg (25.0-35.0); MCHC 30.3 g/dL (31.0-37.0); Mean Platelet Volume 6.6; Platelet Count 328 k/uL (150-450); RBC 4.01 m/uL (3.80-5.40); RDW 13.8 % (11.5-15.5); WBC 7.8 k/uL (3.8-10.6)
[2017-12-01 18:04] LABS: Albumin 4.2 g/dL (3.5-5.0); Calcium 9.4 mg/dL (8.4-10.2); Potassium 3.9 mmol/L (3.5-5.1); Total Bilirubin 0.7 mg/dL (0.2-1.3); Total Protein 6.9 g/dL (6.3-8.2)
[2017-12-01 18:19] LABS: Prothrombin Time 9.6 sec (9.0-12.0)
[2017-12-01 18:52] LABS: Partial Thromboplastin Time 21.4 sec (22.0-30.0)
== END | disposition home or self-care (01) ==
LOC: LABPAT 17:05
PROVIDERS: ATTEND Orthopaedic Surgery
DX: Z01.812 Encounter for preprocedural laboratory examination (principal)
CPT/HCPCS: 80053; 85027; 85610; 85730

== ENCOUNTER 2017-12-06 07:00 | Inpatient (IN) | payer MEDICARE ==
--- NOTE | 2017-11-22 23:07 | CONS ---
CONSULTATION Kenzie Nur is a 72-year-old female who is scheduled for orthopedic surgery on the left hip because of severe pain and degenerative joint disease which affects her mobility. She has been seen by Dr. Eric King from Orthopedics and plans are for surgery later this month on December 06. We were asked to see her in preoperative evaluation. The patient does have a history of multiple medical concerns and previous history of multiple surgeries. She does have a history of hypertension, ulcerative colitis, for which she has had to have an ileostomy performed. She does have degenerative arthritis in the left hip. There is some history of seizures in the past but none recently. She has underlying fibromyalgia, gastroesophageal reflux disease, history of bilateral carotid disease. She has generalized anxiety disorder; also history of primary insomnia and a history of mixed urinary incontinence. Her previous surgeries include previous hernia repair, cholecystectomy. She has had bilateral cataracts and lens implants. She has had appendectomy. She has had lap band surgery, which was removed in the past; previous gastric surgery with vagotomy. She has had hysterectomy, bladder suspension surgery, previous lumbar surgery. She has had ileostomy for her Crohn's disease. REVIEW OF SYSTEMS: Negative for any unusual chest pain or shortness of breath. No unusual cough. No nausea or vomiting. No urinary or bowel symptoms. No blood in her stool. No unusual edema. ALLERGIES: Include problems with CODEINE in the past, reactions to COMPAZINE and ATORVASTATIN. She is allergic to KEFLEX and PENICILLIN with allergies. Apparently she has had problems with INDERAL in the past. MEDICATIONS: 1. She is on Blessing for chronic pain at 325 mg-10 mg 4 times a day. 2. She also uses Zolpidem 10 mg at night for sleep as needed. 3. Vesicare 10 mg daily for her incontinence. 4. She does take meclizine 12.5 mg up to 3-4 times a day for her vertigo and dizziness. 5. She had been on diclofenac 50 mg up to 4 times a day for arthritis, but she has been instructed to stop that at this point prior to her surgery. 6. Amlodipine 10 mg daily. 7. Acyclovir 200 mg 4 times a day as prophylaxis for herpes. 8. Parafon Forte 500 mg 4 times a day for muscle spasms. 9. Protonix 40 mg daily for gastroesophageal reflux. 10.Crestor 5 mg one every other day for cholesterol control. 11.Cymbalta 30 mg twice a day for her fibromyalgia. FAMILY HISTORY: Family history is positive for heart disease. Also strong family history of breast cancer and thyroid cancer, uterine cancer, diabetes. SOCIAL HISTORY: She lives locally with her . She has not smoked or drunk for many years now. PHYSICAL EXAMINATION: She is alert and pleasant, sitting up on the examination table in no acute distress. Her vital signs reveal her blood pressure 122/82, pulse 80 and regular. Respirations were 12 to 14. Her BMI is 29.5 with a weight of 156.4 pounds. Head and neck exam is unremarkable. Extraocular movements are intact. Pupils are equal and reactive. NECK: Supple, but there are bilateral carotid bruits. No thyromegaly or adenopathy detected. LUNGS: Clear to auscultation. Heart tones are regular without murmurs. Breast and pelvic exam is deferred. ABDOMEN: Soft and nontender. Extremities reveal no unusual edema. Neurologically, cranial nerves are intact. She is alert and oriented. No focal weakness noted. EKG showed a normal sinus rhythm; no evidence of ischemic changes. Her preoperative labs are pending and will be done at the hospital, but overall at this point I do not see any definite contraindication to the planned surgery. With her age and medical concerns and history as stated above, she has some increased risk, but at this point her cardiovascular status overall appears stable for left hip surgery, pending results of lab testing. Once again, she is to remain off of her anti- inflammatory medicines and can continue her other medications up to her surgery. Please call with any questions, concerns or problems. MMODL / IJN: [id number] /
[2017-11-29 14:27] VITALS: BMI 33.2
[~2017-12-06 07:00] MED LIST: ACETAMINOPHEN TAB 500 MG TAB PO ONE; DEXAMETHASONE SOD PHOSPHATE 10 MG/ML 1 ML VIAL IV ONE; LIDOCAINE 1% 20 ML VIAL (10MG/ML) FOR IV START INTRADERMA PRN; MELOXICAM 7.5 MG TAB PO ONE; MIDAZOLAM 2 MG/2 ML VIAL IV PRN; ONDANSETRON 4 MG/2 ML VIAL IVP ONE; ROPIVACAINE 246.25 MG, EPINEPHrine 0.5 MG, KETOROLAC 30 MG, cloNIDine HCL/PF 80 MCG, WA... MISCELLANE ONE; TRANEXAMIC ACID 1,000 MG in SODIUM CHLORIDE 0.9% 50 ML IVPB ONE; VANCOMYCIN 1,000 MG in SODIUM CHLORIDE 0.9% 250 ML IVPB ONE
[2017-12-06] MEDS ORDERED: ONDANSETRON 4 MG/2 ML VIAL ONE (07:41)
[2017-12-06] MEDS: LACTATED RINGERS 1,000 ML IV SCH ×2 (07:42→15:40)
[2017-12-06] MEDS ORDERED: DIAZEPAM 5 MG TAB PO PRN (08:46)
[2017-12-06] MEDS ORDERED: hydrOXYzine PAMOATE 25 MG CAP PO PRN (08:46)
[2017-12-06] MEDS ORDERED: HYDROcodone/APAP 7.5-325MG 1 EACH TAB PO PRN (08:46)
[2017-12-06] MEDS ORDERED: NALOXONE 0.4 MG/ML 1 ML VIAL IV PRN (08:46)
[2017-12-06] MEDS ORDERED: HYDROmorphone 0.5 MG/0.5 ML SYRINGE IVP PRN ×2 (08:46)
[2017-12-06] MEDS ORDERED: MAGNESIUM HYDROXIDE 2,400 MG/10 ML CUP PO PRN (08:46)
[2017-12-06] MEDS ORDERED: MELOXICAM 7.5 MG TAB PO SCH (09:00)
[2017-12-06] MEDS ORDERED: PHENYLEPHRINE-0.9% NACL SYG 1 MG/10 ML SYRINGE ONE (09:14)
[2017-12-06] MEDS ORDERED: fentaNYL (PF) 50 MCG/ML 2 ML AMP ONE (09:14)
[2017-12-06] MEDS ORDERED: TRANEXAMIC ACID 1,000 MG/10 ML VIAL ONE (09:14)
[2017-12-06] MEDS ORDERED: PROPOFOL 10 MG/ML 20 ML VIAL IV ONE (09:14)
[2017-12-06] MEDS ORDERED: SODIUM CHLORIDE 0.9% 100 ML BAG ONE (09:14)
[2017-12-06] MEDS ORDERED: MIDAZOLAM 2 MG/2 ML VIAL ONE (09:14)
[2017-12-06] MEDS ORDERED: ROPIVACAINE 246.25 MG, EPINEPHrine 0.5 MG, cloNIDine HCL/PF 80 MCG, WATER FOR INJECTION... MISCELLANE ONE ×4 (09:30)
[2017-12-06] MEDS ORDERED: CLINDAMYCIN 1,800 MG in SODIUM CHLORIDE 0.9% IRRIGATIO 3,000 ML IRRIGATION ONE (09:49)
[2017-12-06] MEDS: ROPIVACAINE 246.25 MG, EPINEPHrine 0.5 MG, cloNIDine HCL/PF 80 MCG, WATER FOR INJECTION... MISCELLANE ONE ×8 (09:57→10:21)
[2017-12-06] MEDS ORDERED: LACTATED RINGERS 1,000 ML IV ONE ×2 (10:16→12:15)
--- NOTE | 2017-12-06 10:51 | P.OP ---
Date of Procedure: 12/06/17 Preoperative Diagnosis: Severe osteoarthritis left hip Postoperative Diagnosis: Severe osteoarthritis left hip Procedure(s) Performed: Left total hip arthroplasty with a direct anterior approach Implants: Escobedo and nephew Polarstem size 4 standard Escobedo [employer] Nephew R3, 3 hole acetabular shell, 48 mm [employer]edo [employer] Nephew reflection 6.5 mm cancellus screw, 20 mm 2 Escobedo [employer] Nephew R3, XLPE 20 acetabular liner Escobedo [employer] Nephew Oxinium femoral head 32 m, +0 All components were press-fit. The articulation is Oxinium on polyethylene. Anesthesia: spinal Friction Paint Machine Tender #1: Eric King Friction Paint Machine Tender #2: Tala Zabala Estimated Blood Loss (ml): 200 (63 mL returned with Cell Saver) Pathology: other (Femoral head) Condition: stable Disposition: PACU Indications for Procedure: After failure of conservative treatment we discussed the surgical and nonsurgical treatment options at length. Patient wishes to proceed with a total hip arthroplasty with a direct anterior approach. Complications specific to this procedure were discussed at length, including but not limited to infection, leg length discrepancy, dislocation, and nerve injury. Patient is aware of all these complications and informed consent was obtained Operative Findings: The operative findings are consistent with severe osteoarthritis of the left hip Description of Procedure: Patient was seen and evaluated in the preoperative area, consent was reviewed, and the surgical site was marked with a skin marker. Patient was then brought to the operating room and given prophylactic antibiotics intravenously. 1 g of Tranexamic acid was also given. A spinal anesthetic was administered by the anesthesia department. The patient was then placed on the Reader table with the bony prominences well-padded. The hip area was then prepped and draped in usual sterile fashion. A universal timeout was then performed, which confirmed the patient's name, surgical site, ALLERGIES, and procedure being performed. Next the incision site was located at 1 cm distal and 1 cm lateral to the anterior superior iliac spine. The skin and subcutaneous tissues were sharply incised. Incision was carefully dissected down to the fascia overlying the tensor fascia sidra muscle. This fascia was then incised in line with the incision. Next, using blunt finger dissection, the tensor fascia sidra muscle was dissected off its investing fascia. The muscle was then carefully retracted laterally with a cobra retractor over the lateral neck of the femur. Next, the circumflex vessels were identified and cauterized using the AquaMantis device. The anterior hip capsule was then exposed. The capsule was then opened and an inverted T fashion. Cobra retractors were then placed intracapsularly. The proximal femur was then visualized. The femoral neck was then osteotomized appropriate level above the lesser trochanter. Small amount of traction was placed with the Reader table. A small wedge of bone was then removed from the remaining femoral head. Next, using a corkscrew femoral head was easily removed from the acetabulum. On gross visual inspection, the femoral head had complete loss of articular cartilage in multiple periarticular osteophytes. Attention was then turned to the acetabulum. the acetabulum was exposed and any remaining labrum was excised. Sequential reaming of the acetabulum was performed using fluoroscopic guidance. When the appropriate size was reached, a trial was then placed. The position and fit of the trial was checked with fluoroscopy. The trial was then removed. Then, using fluoroscopic guidance, the final implant was impacted at 20 of anteversion and 40 of abduction, and fully seated in the acetabulum. 2 screws were then placed in the acetabulum. Again fluoroscopy was used to check position of the screws. Next, the liner was then impacted, with a 20 elevated liner located in the anterior superior quadrant. Component locking was confirmed. Attention was then directed to the femur. With the aid of the Reader table, the femur was externally rotated to approximately 130, extended, and abducted under the opposite leg. A side hook was then placed under the proximal femur, and the side hook elevator was used to elevate the proximal femur. Retractors were then placed. A capsular release was performed, as well as a release of the conjoined tendon, which afforded excellent visualization of the proximal femur. Next, a box osteotome was used to lateralize the proximal femur. A coil winder hand was then used to locate the femoral canal. Sequential broaching was then performed with appropriate size which afforded excellent fixation in the proximal femur. A trial was then placed with appropriate head and neck, and the hip was gently reduced with the aid of the Reader table. Fluoroscopy was then used to check position of the components, as well as to ensure equal leg lengths. The hip was then gently dislocated and the trials were then removed. Final implants were then impacted and the hip was again reduced. Final fluoroscopic x-rays confirmed that the components were in anatomic position, as well as equal leg lengths. The hip was also taken through range of motion, and found to be stable. The hip was then copiously irrigated with antibiotic solution with pulsatile lavage. The hip was then irrigated with Irrisept solution. The soft tissues were then injected with a ropivacaine solution, which consisted of 246.25 mg of ropivacaine, 0.5 mg of epinephrine, 30 mg of Toradol, 80 g of clonidine, and 48.45 mL of sterile water, for a total of 100 mL of fluid injected. A second dose of 1 g of Tranexamic acid was also given. the fascia was then closed with 2-0 strata fix suture. The subcutaneous tissue was closed with 3-0 Vicryl. The subcuticular tissue was closed with 3-0 strata fix suture. The skin was then closed with Dermabond glue and a sterile silver dressing. The patient was then transferred to the recovery room in stable condition. The senior assistant manager DUC Siegel was required due to the complexity of surgery, and the need for skilled surgical brace maker for positioning, draping, exposure, retraction, and closure of the wound.
--- NOTE | 2017-12-06 11:53 | XR ---
Limited left hip HISTORY: Status post left hip arthroplasty Frontal view of the left hip submitted. Patient is status post left hip arthroplasty. There is anatomic alignment. Lucency in the soft tissue s is noted incidentally. There are vascular calcifications. IMPRESSION: Orthopedic follow-up.
[2017-12-06] MEDS ORDERED: HYDROmorphone 1 MG/ML 1 ML SYRINGE IVP ONE ×4 (12:46→14:16)
[2017-12-06] MEDS ORDERED: diphenhydrAMINE 50 MG/ML 1 ML VIAL IVP ONE (13:21)
--- NOTE | 2017-12-06 13:30 | FL ---
Fluoroscopy HISTORY: Pain 27 seconds fluoroscopy time supplied to the referring clinician. 2 intraoperative C-arm images docum ent the procedure. See dictated report from orthopedic surgery.
--- NOTE | 2017-12-06 13:31 | XR ---
Limited left hip HISTORY: Hip replacement 2 intraoperative C-arm images document the procedure
[2017-12-06] MEDS: fentaNYL (PF) 50 MCG/ML 2 ML AMP IV PRN ×2 (13:35→13:42)
[2017-12-06] MEDS: DIAZEPAM 5 MG TAB PO PRN (13:48)
[2017-12-06] MEDS: ASPIRIN 325 MG TAB PO SCH ×2 (15:39→21:09)
[2017-12-06] MEDS: HYDROmorphone 0.5 MG/0.5 ML SYRINGE IVP PRN ×2 (15:47→20:54)
[2017-12-06] MEDS: SODIUM CHLORIDE 0.9% 1,000 ML IV SCH (15:48)
[2017-12-06] MEDS ORDERED: MECLIZINE 12.5 MG TAB PO PRN (17:21)
[2017-12-06] MEDS ORDERED: ZOLPIDEM 10 MG TAB PO PRN (17:21)
--- NOTE | 2017-12-06 17:32 | P.PN ---
Progress Note - Text The patient is a 72-year-old female who has severe left hip arthritis and underwent left hip arthroplasty with direct anterior approach earlier today by Dr. Eric King. Presently she is alert in bed talking to one of her daughters. Does not appear to be in any acute distress. She denies any shortness of breath or chest pain. She had some initial postoperative nausea but that has cleared. Temperature is 98.4 with a pulse of 65 and respirations 16. Last blood pressure was 93/54 and she is 95 % saturated on room air. Lung and heart examination is clear and regular. Abdomen is nontender. No focal neurological deficits. She is alert and oriented. Impressions and plans Patient appears to be doing well post surgery. The patient does have a history of ulcerative colitis for which she has had a colectomy. Also past history of seizures but no recent episodes. History of fibromyalgia along with gastroesophageal reflux and carotid vascular disease. History of general anxiety disorder with insomnia and mixed urinary incontinence. She does have history of multiple ALLERGIES as previously listed. Please refer to preop consultation for details. Labs and urinalysis have been ordered. May continue to progress as per orthopedics.
[2017-12-06] MEDS: HYDROcodone/APAP 7.5-325MG 1 EACH TAB PO PRN (18:56)
[2017-12-06] MEDS ORDERED: SODIUM CHLORIDE 0.9% 1,000 ML IV ONE (19:43)
[2017-12-06] MEDS ORDERED: VANCOMYCIN 1,250 MG in SODIUM CHLORIDE 0.9% 250 ML IVPB ONE (20:00)
[2017-12-06] MEDS: PANTOPRAZOLE 40 MG TABLET PO SCH (21:09)
[2017-12-06] MEDS: TROSPIUM CHLORIDE 20 MG TABLET PO SCH (21:09)
[2017-12-06] MEDS: SENNOSIDES-DOCUSATE SODIUM 1 EACH TAB PO SCH (21:24)
[2017-12-06 23:55] LABS: Appearance,Urine Clear (Clear); Bacteria,Urine Many /hpf; Bilirubin,Urine Negative (Negative); Blood,Urine Negative (Negative); Color,Urine Colorless; Glucose,Urine (UA) Negative (Negative); Ketones,Urine Negative (Negative); Leukocyte Esterase,Urine Moderate (Negative); Nitrite,Urine Positive (Negative); PH, Urine 5.5 (5.0-8.0); Protein,Urine Negative (Negative); RBC,Urine <1 /hpf (0-5); Specific Gravity,Urine 1.004 (1.001-1.035); Urobilinogen,Urine <2.0 mg/dL (<2.0)
[2017-12-07] MEDS: HYDROcodone/APAP 7.5-325MG 1 EACH TAB PO PRN ×2 (01:32→08:01)
[2017-12-07] MEDS: SODIUM CHLORIDE 0.9% 1,000 ML IV SCH ×2 (01:34→08:10)
[2017-12-07 01:47] LABS: Basophils % (A) 0 %; Eosinophils # (A) 0.1 k/uL (0-0.7); Eosinophils % (A) 2 %; HCT 26.4 % (34.0-46.0); Lymphocytes # (A) 1.2 k/uL (1.0-4.8); Lymphocytes % (A) 14 %; MCH 32.4 pg (25.0-35.0); MCHC 32.7 g/dL (31.0-37.0); MCV 99.1 fL (80.0-100.0); Macrocytosis Slight; Mean Platelet Volume 7.4; Monocytes # (A) 0.4 k/uL (0-1.0); Monocytes % (A) 5 %; Neutrophils # (A) 6.5 k/uL (1.3-7.7); Neutrophils % (A) 78 %; Platelet Count 277 k/uL (150-450); RBC 2.67 m/uL (3.80-5.40); RDW 15.1 % (11.5-15.5); WBC 8.4 k/uL (3.8-10.6)
[2017-12-07 01:48] LABS: HGB 8.6 gm/dL (11.4-16.0)
[2017-12-07 02:07] LABS: Anion Gap 9 mmol/L; Blood Urea Nitrogen 9 mg/dL (7-17); Carbon Dioxide 18 mmol/L (22-30); Chloride 111 mmol/L (98-107); Glucose 91 mg/dL (74-99); Potassium 3.6 mmol/L (3.5-5.1); Sodium 138 mmol/L (137-145)
[2017-12-07] MEDS ORDERED: LEVOFLOXACIN 500MG-D5W PMX 500 MG in DEXTROSE/WATER 1 100ML.BAG IVPB STA (02:38)
[2017-12-07] MEDS ORDERED: HYDROmorphone 1 MG/ML 1 ML SYRINGE IVP PRN (03:21)
[2017-12-07] MEDS ORDERED: HYDROmorphone 2 MG TAB PO PRN ×2 (05:46→05:47)
[2017-12-07] MEDS: ONDANSETRON 4 MG/2 ML VIAL IVP PRN ×2 (06:07→16:11)
[2017-12-07] MEDS: HYDROmorphone 2 MG TAB PO PRN ×3 (06:13→22:35)
[2017-12-07 07:54] LABS: Basophils % (A) 0 %; Eosinophils # (A) 0.1 k/uL (0-0.7); Eosinophils % (A) 1 %; HGB 9.4 gm/dL (11.4-16.0); Hypochromasia Slight; Lymphocytes # (A) 0.9 k/uL (1.0-4.8); Lymphocytes % (A) 12 %; MCH 32.3 pg (25.0-35.0); MCHC 31.3 g/dL (31.0-37.0); MCV 103.2 fL (80.0-100.0); Macrocytosis Slight; Mean Platelet Volume 6.7; Monocytes # (A) 0.4 k/uL (0-1.0); Monocytes % (A) 5 %; Neutrophils # (A) 6.2 k/uL (1.3-7.7); Neutrophils % (A) 82 %; Platelet Count 296 k/uL (150-450); RBC 2.91 m/uL (3.80-5.40); RDW 15.1 % (11.5-15.5); WBC 7.6 k/uL (3.8-10.6)
[2017-12-07] MEDS: ASPIRIN 325 MG TAB PO SCH ×2 (08:01→21:21)
[2017-12-07] MEDS: DIAZEPAM 5 MG TAB PO PRN ×2 (08:01→16:12)
[2017-12-07] MEDS ORDERED: HYDROcodone/APAP 10-325MG 1 EACH TAB PO PRN (08:03)
--- NOTE | 2017-12-07 08:04 | P.PN ---
Progress Note - Text The patient is a 72-year-old male with severe left hip arthritis and underwent left hip arthroplasty with direct anterior approach yesterday by Dr. Eric King. This morning she is having difficulty with pain control. The patient appears very anxious and gripping the rails of the bed stating the pain is severe. She does not appear to be any respiratory distress. No chest pain. She has also had some borderline blood pressures through the evening and at night. That initially responded to IV fluids and antibiotic administration. Vital signs have shown a temperature of 100 with a pulse of 71 and respirations 20. Blood pressure did go up to 115/94 but presently nursing related to pressures 93 systolic. She is 92% saturated on room air. Lung and heart exam is clear and regular. Abdomen is nontender. No definite neurological deficits noted. Laboratory White count is 7.6 with a hemoglobin 9.4 and a platelet count of 296. Sodium is 138 with potassium 3.6 and a CO2 content of 18. A BUN was 9 with creatinine of 0.5 given her GFR greater than 90. Urinalysis did show some moderate leukocyte esterase with 40 white cells present. Impressions and plans Discussed with patient and nursing staff this morning. Continue with IV fluids and follow continue with her [place] now and Valium which she has been using previously. The patient is a long-time user of chronic pain analgesics. Urine and blood cultures are pending. We'll continue levofloxacin daily. Further recommendations pending.
[2017-12-07 08:05] LABS: Anion Gap 6 mmol/L; Blood Urea Nitrogen 7 mg/dL (7-17); Calcium 8.1 mg/dL (8.4-10.2); Carbon Dioxide 24 mmol/L (22-30); Chloride 109 mmol/L (98-107); Glucose 96 mg/dL (74-99); Potassium 3.4 mmol/L (3.5-5.1); Sodium 139 mmol/L (137-145)
[2017-12-07] MEDS: LACTATED RINGERS 1,000 ML IV SCH (08:07)
[2017-12-07] MEDS: TROSPIUM CHLORIDE 20 MG TABLET PO SCH ×2 (08:07→21:21)
--- NOTE | 2017-12-07 09:24 | P.PN ---
Subjective Progress Note Date: 12/07/17 This is a 72-year-old female who is status post left total hip arthroplasty. This is postoperative day #1. Patient is seen and evaluated at bedside with Dr. Eric King. Patient states that pain control has been an issue. Patient states that she has not been up and walking with physical therapy yet. Patient denies any fever/chills, numbness, weakness, tingling, abdominal pain, shortness of breath or chest pain. Objective - Vital Signs Vital signs: Vital Signs Temp 100.1 F H 12/07/17 07:58 Pulse 84 12/07/17 07:58 Resp 19 12/07/17 07:58 BP 96/63 12/07/17 07:58 Pulse Ox 96 12/07/17 07:58 Intake & Output 12/06/17 12/07/17 12/07/17 18:59 06:59 18:59 Intake Total 2251 2194 Output Total 450 Balance 1801 2194 Weight 77.111 kg Intake: IV 2251 Intake, IV Titration 2194 Amount Levofloxacin 500Mg-D5w 100 Pmx 500 mg In Dextrose/ Water 1 100ml.bag @ 100 mls/hr IVPB ONCE STA Rx#: [id number] Sodium Chloride 0.9% 1, 970 000 ml @ 65 mls/hr IV . [id number] [facility] Rx#:[id number] Sodium Chloride 0.9% 1, 999 000 ml @ 999 mls/hr IV . Q1H1M ONE Rx#:[id number] Vancomycin 1,250 mg In 125 Sodium Chloride 0.9% 250 ml @ 125 mls/hr IVPB ONCE ONE Rx#:[id number] Output: Urine 250 Estimated Blood Loss 200 Other: Voiding Method Bedpan # Voids 6 - Exam Vital signs are stable. Patient is in no acute distress and is alert and oriented 3. Calf is soft and nontender to palpation. Dressing is clean, dry, and intact. Patient has full foot and ankle motion without pain or difficulty. Neurovascular status and circulatory status are intact. - Labs CBC & Chem 7: 12/07/17 07:03 12/07/17 07:03 Labs: Abnormal Lab Results - Last 24 Hours (Table) 12/06/17 12/07/17 12/07/17 Range/Units Unknown 01:38 01:38 RBC 2.67 L (3.80-5.40) m/uL Hgb 8.6 L D (11.4-16.0) gm/dL Hct 26.4 L (34.0-46.0) % MCV (80.0-100.0) fL Lymphocytes # (1.0-4.8) k/uL Potassium (3.5-5.1) mmol/L Chloride 111 H (98-107) mmol/L Carbon Dioxide 18 L (22-30) mmol/L Creatinine 0.50 L (0.52-1.04) mg/dL Calcium 8.0 L (8.4-10.2) mg/dL Urine Nitrite Positive H (Negative) Ur Leukocyte Esterase Moderate H (Negative) Urine WBC 40 H (0-5) /hpf Urine WBC Clumps Occasional H (None) /hpf Urine Bacteria Many H (None) /hpf 12/07/17 12/07/17 Range/Units 07:03 07:03 RBC 2.91 L (3.80-5.40) m/uL Hgb 9.4 L (11.4-16.0) gm/dL Hct 30.0 L (34.0-46.0) % MCV 103.2 H (80.0-100.0) fL Lymphocytes # 0.9 L (1.0-4.8) k/uL Potassium 3.4 L (3.5-5.1) mmol/L Chloride 109 H (98-107) mmol/L Carbon Dioxide (22-30) mmol/L Creatinine (0.52-1.04) mg/dL Calcium 8.1 L (8.4-10.2) mg/dL Urine Nitrite (Negative) Ur Leukocyte Esterase (Negative) Urine WBC (0-5) /hpf Urine WBC Clumps (None) /hpf Urine Bacteria (None) /hpf Assessment and Plan (1) Primary osteoarthritis of left hip Current Visit: Yes Status: Acute Code(s): M16.12 - UNILATERAL PRIMARY OSTEOARTHRITIS, LEFT HIP SNOMED Code(s): 577538339 (2) S/P total hip arthroplasty Current Visit: Yes Status: Acute Code(s): Z96.649 - PRESENCE OF UNSPECIFIED ARTIFICIAL HIP JOINT SNOMED Code(s): 167182886758 Plan: Continue routine postop care. Continue anticoagulation with ASA. Weightbearing as tolerated with a walker Leave dressing in place for 10 days. Likely discharge to rehab on Tuesday.
[2017-12-07] MEDS ORDERED: POTASSIUM CHLORIDE ER 20 MEQ TAB.ER PO SCH (10:00)
[2017-12-07] MEDS: POTASSIUM CHLORIDE ER 20 MEQ TAB.ER PO SCH ×2 (11:27→13:22)
[2017-12-07] MEDS: HYDROcodone/APAP 10-325MG 1 EACH TAB PO PRN ×2 (13:23→19:32)
[2017-12-07] MEDS: ACETAMINOPHEN TAB 325 MG TAB PO PRN (21:21)
[2017-12-07] MEDS: PANTOPRAZOLE 40 MG TABLET PO SCH (21:21)
[2017-12-07] MEDS: SENNOSIDES-DOCUSATE SODIUM 1 EACH TAB PO SCH (21:22)
[2017-12-07] MEDS: CLINDAMYCIN 300 MG in DEXTROSE 5% IN WATER 50 ML IVPB SCH ×2 (22:30)
[2017-12-08] MEDS: HYDROcodone/APAP 10-325MG 1 EACH TAB PO PRN ×4 (01:18→19:44)
[2017-12-08] MEDS: SODIUM CHLORIDE 0.9% 1,000 ML IV SCH ×4 (01:26→21:30)
[2017-12-08] MEDS: CLINDAMYCIN 300 MG in DEXTROSE 5% IN WATER 50 ML IVPB SCH ×6 (05:30→21:10)
[2017-12-08] MEDS: HYDROmorphone 2 MG TAB PO PRN ×4 (05:30→17:16)
[2017-12-08] MEDS: LEVOFLOXACIN 500 MG TAB PO SCH (07:41)
[2017-12-08] MEDS: ASPIRIN 325 MG TAB PO SCH ×2 (07:41→19:44)
[2017-12-08] MEDS: TROSPIUM CHLORIDE 20 MG TABLET PO SCH ×2 (07:41→19:44)
--- NOTE | 2017-12-08 07:56 | P.PN ---
Progress Note - Text The patient's a 72-year-old female who is second day post total left hip arthroplasty with anterior approach. She has had some elevated temperatures on and off. This morning she does have some chills. States this happens to her at home at times. Denies any cough or chest pain. She is still complaining of surgical site pain. No nausea or vomiting. Temperature last night was up to 102.5 but his did come down to 99 and now it is 100.4. Blood pressure is 132/62 and she is 99% saturated on 3 L. Pulse is 97 and regular. Lung and heart examination is clear. Abdomen is nontender. No unusual skin rashes or edema noted. Compression appliances intact. Neurologically she is alert and oriented. No cranial nerves are focal deficits noted. Laboratory CBC and basic metabolic panel are pending this morning. Initial blood culture is so far negative. Urine cultures pending. Impression and plans As discussed with patient and nursing staff. Continue present antibiotics. We'll get chest x-ray this morning. Will await further reports and urine culture. Continue with physical and occupational therapies as tolerated and as per orthopedics.
[2017-12-08 08:05] LABS: Anion Gap 7 mmol/L; Blood Urea Nitrogen 6 mg/dL (7-17); Calcium 7.7 mg/dL (8.4-10.2); Carbon Dioxide 22 mmol/L (22-30); Chloride 112 mmol/L (98-107); Glucose 96 mg/dL (74-99); Potassium 4.6 mmol/L (3.5-5.1); Sodium 141 mmol/L (137-145)
--- NOTE | 2017-12-08 08:27 | P.PN ---
Subjective Progress Note Date: 12/08/17 This is a 72-year-old female who is status post left total hip arthroplasty. This is postoperative day #2. Patient states that her pain is better controlled and she has been out of bed and into a chair. Patient denies any fever/chills, numbness, weakness, tingling, abdominal pain, shortness of breath or chest pain. Objective - Vital Signs Vital signs: Vital Signs Temp 100.4 F H 12/08/17 07:43 Pulse 80 12/08/17 05:44 Resp 18 12/08/17 07:43 BP 132/62 12/08/17 07:43 Pulse Ox 99 12/08/17 07:43 Intake & Output 12/07/17 12/08/17 12/08/17 18:59 06:59 18:59 Output Total 100 200 Balance -100 -200 Output: Urine 100 Stool 200 Other: # Voids 1 - Exam Vital signs are stable. Patient is in no acute distress and is alert and oriented 3. Calf is soft and nontender to palpation. Dressing is clean, dry, and intact. Patient has full foot and ankle motion without pain or difficulty. Neurovascular status and circulatory status are intact. - Labs CBC & Chem 7: 12/07/17 07:03 12/08/17 06:32 Labs: Abnormal Lab Results - Last 24 Hours (Table) 12/08/17 Range/Units 06:32 Chloride 112 H (98-107) mmol/L BUN 6 L (7-17) mg/dL Calcium 7.7 L (8.4-10.2) mg/dL Microbiology - Last 24 Hours (Table) 12/07/17 01:38 Blood Culture - Preliminary Blood No Growth after 24 hours 12/06/17 Unknown Urine Culture - Preliminary Urine,Voided Assessment and Plan (1) Primary osteoarthritis of left hip Current Visit: Yes Status: Acute Code(s): M16.12 - UNILATERAL PRIMARY OSTEOARTHRITIS, LEFT HIP SNOMED Code(s): 566365184 (2) S/P total hip arthroplasty Current Visit: Yes Status: Acute Code(s): Z96.649 - PRESENCE OF UNSPECIFIED ARTIFICIAL HIP JOINT SNOMED Code(s): 936500572505 Plan: Continue routine postop care. Continue anticoagulation with ASA. Weightbearing as tolerated with a walker Leave dressing in place for 10 days. Likely discharge to rehab on Tuesday.
[2017-12-08] MEDS: ONDANSETRON 4 MG/2 ML VIAL IVP PRN (09:13)
--- NOTE | 2017-12-08 09:17 | XR ---
EXAMINATION TYPE: XR chest 1V portable DATE OF EXAM: 12/08/2017 COMPARISON: 08/29/2015 HISTORY: Shortness of breath, hypoxia TECHNIQUE: Single frontal view of the chest is obtained. FINDINGS: Elevated right hemidiaphragm and cardiomegaly noted. Atherosclerotic change aorta. Diffuse osteopenia and arthropathy of the shoulders. Previous surgery involving the epigastrium. Curvature t he spine with degenerative changes noted. IMPRESSION: 1. Cardiomegaly with no acute infiltrate. Diffuse atherosclerotic change of the aorta noted.
[2017-12-08] MEDS: SENNOSIDES-DOCUSATE SODIUM 1 EACH TAB PO SCH (19:44)
[2017-12-08] MEDS: PANTOPRAZOLE 40 MG TABLET PO SCH (19:44)
[2017-12-08] MEDS ORDERED: CLINDAMYCIN 300 MG in DEXTROSE 5% IN WATER 50 ML IVPB SCH ×2 (20:24)
[2017-12-08] MEDS: ACETAMINOPHEN TAB 325 MG TAB PO PRN (23:27)
[2017-12-09] MEDS: HYDROmorphone 2 MG TAB PO PRN ×2 (00:58→10:39)
[2017-12-09] MEDS: CLINDAMYCIN 300 MG in DEXTROSE 5% IN WATER 50 ML IVPB SCH ×4 (05:09→14:34)
[2017-12-09] MEDS: HYDROcodone/APAP 10-325MG 1 EACH TAB PO PRN ×2 (05:12→11:31)
[2017-12-09] MEDS: TROSPIUM CHLORIDE 20 MG TABLET PO SCH (07:44)
[2017-12-09] MEDS: ASPIRIN 325 MG TAB PO SCH (07:44)
[2017-12-09] MEDS: LEVOFLOXACIN 500 MG TAB PO SCH (07:44)
[2017-12-09 07:49] VITALS: TEMP 98.6
[2017-12-09 07:55] LABS: Anisocytosis Slight; Basophils % (A) 0 %; Eosinophils # (A) 0.2 k/uL (0-0.7); Eosinophils % (A) 2 %; Hypochromasia Marked; Lymphocytes # (A) 0.8 k/uL (1.0-4.8); Lymphocytes % (A) 9 %; MCH 33.4 pg (25.0-35.0); MCHC 31.1 g/dL (31.0-37.0); MCV 107.5 fL (80.0-100.0); Macrocytosis Moderate; Mean Platelet Volume 7.1; Monocytes # (A) 0.4 k/uL (0-1.0); Monocytes % (A) 4 %; Neutrophils # (A) 7.1 k/uL (1.3-7.7); Neutrophils % (A) 84 %; Platelet Count 227 k/uL (150-450); RBC 2.14 m/uL (3.80-5.40); RDW 16.1 % (11.5-15.5); WBC 8.5 k/uL (3.8-10.6)
[2017-12-09 08:04] LABS: HGB 7.2 gm/dL (11.4-16.0)
--- NOTE | 2017-12-09 08:25 | P.DS ---
Providers Date of admission: 12/06/17 07:00 Expected date of discharge: 12/09/17 Attending physician: Eric King Consults: 12/06/17 08:46 Consult Physician Routine Consulting Provider: Jim Ward Reason/Comments: medical management Do you want consulting provider notified?: Yes Primary care physician: Jim Ward - Discharge Diagnosis(es) (1) Primary osteoarthritis of left hip Current Visit: Yes Status: Acute (2) S/P total hip arthroplasty Current Visit: Yes Status: Acute Hospital Course: This is a 72-year-old female with known history of degenerative arthritis of the left hip. The patient presents for evaluation. After discussion and consideration patient elects to proceed with total hip arthroplasty. The patient is seen preoperatively by Dr. King and medically cleared for surgery by their primary care physician. Patient is admitted to [facility] on 12/06/2017 for total hip arthroplasty. The procedures performed without complication or sequelae. The patient is doing well postoperatively. Labs and vital signs are stable on day of discharge. On day of discharge patient's hip incision is healing well. There is minimal erythema. There is no drainage noted at this time. There is minimal soft tissue swelling to the hip and thigh. Patient has full foot and ankle motion without difficulty or pain. Neurovascular status to the left lower extremity is intact. Patient is discharged to rehab in good condition. Please see med rec for accurate list of home medications. Plan - Discharge Summary Discharge Rx Participant: No New Discharge Prescriptions: New Aspirin 325 mg PO BID #60 tab HYDROcodone/APAP 10-325MG [[place] 10-325] 1 - 2 tab PO Q4-6H PRN #84 tab PRN Reason: Pain Sennosides [Senokot] 1 tab PO BID #60 tablet No Action diphenhydrAMINE [Benadryl] 50 mg PO QID PRN PRN Reason: Itching Prochlorperazine [Compazine] 10 mg PO Q6H PRN PRN Reason: Nausea Pantoprazole Sodium [Protonix] 40 mg PO HS Acyclovir [Zovirax] 200 mg PO Q6HR Meclizine [Antivert] 12.5 mg PO QID PRN PRN Reason: Vertigo Chlorzoxazone [Parafon Forte Dsc] 500 mg PO Q6HR Solifenacin Succinate [Vesicare] 10 mg PO QAM HYDROcodone/APAP 10-325MG [[place] 10-325] 1 tab PO Q6H PRN PRN Reason: Pain Zolpidem [Ambien] 10 mg PO HS PRN PRN Reason: Insomnia Diclofenac Sodium [Voltaren] 50 mg PO QID Discharge Medication List Acyclovir [Zovirax] 200 mg PO Q6HR 08/17/13 [History] Chlorzoxazone [Parafon Forte Dsc] 500 mg PO Q6HR 08/17/13 [History] Meclizine [Antivert] 12.5 mg PO QID PRN 08/17/13 [History] Pantoprazole Sodium [Protonix] 40 mg PO HS 08/17/13 [History] Prochlorperazine [Compazine] 10 mg PO Q6H PRN 08/17/13 [History] Solifenacin Succinate [Vesicare] 10 mg PO QAM 08/17/13 [History] diphenhydrAMINE [Benadryl] 50 mg PO QID PRN 08/17/13 [History] HYDROcodone/APAP 10-325MG [[place] 10-325] 1 tab PO Q6H PRN 10/28/14 [History] Diclofenac Sodium [Voltaren] 50 mg PO QID 11/21/14 [History] Zolpidem [Ambien] 10 mg PO HS PRN 11/21/14 [History] Aspirin 325 mg PO BID #60 tab 12/09/17 [Rx] HYDROcodone/APAP 10-325MG [[place] 10-325] 1 - 2 tab PO Q4-6H PRN #84 tab [Rx] Sennosides [Senokot] 1 tab PO BID #60 tablet 12/09/17 [Rx] Follow up Appointment(s)/Referral(s): Eric King DO [Doctor of Osteopathic Medicine] - 2 Weeks Activity/Diet/Wound Care/Special Instructions: Weightbearing as tolerated with a walker. Leave dressing intact. Dressing may be removed by home care nurse in 10 days. May shower with dressing on. Follow-up with [facility] in 2 weeks, please call with any questions or concerns [phone] Discharge Disposition: TRANSFER TO SNF/ECF
--- NOTE | 2017-12-09 08:31 | P.PN ---
Progress Note - Text Patient is a 72-year-old female who is here today post total left hip arthroplasty with anterior approach. The patient's postop course has shown some elevated postop temperatures along with expected blood loss anemia. Patient has had blood and urine cultures which have been negative. Chest x-ray also unremarkable. This morning she is sitting up in bed. Alert and oriented. No fever or chills. No nausea vomiting. No chest pain. Temperature of 98.6 with a pulse of 91 and respirations 14. Blood pressure 105/ 58 and she is 90% saturated on room air. Her maximal temperature over the last 5 hours was 100.7. Lung and heart examination is clear and regular. Abdomen nontender. Patient has some pedal edema but no unusual edema noted. She is alert and oriented without any focal neurological deficits. Laboratory White count is 8.5 with a hemoglobin 7.2 and a platelet count of 227. Yesterday's electrolytes were unremarkable. GFR is greater than 70. Mildly low calcium of 7.7. As mentioned chest x-ray from yesterday showed no acute infiltrate. There was some cardiomegaly. Impressions and plans At this point patient overall seems to be doing well post hip surgery. I would recommend she continue on Levaquin 500 mg once a day for a another seven -day course. Patient uses meclizine/Antivert 12.5 or times a day if needed for vertigo and dizziness. Protonix 40 mg at at bedtime for gastroesophageal reflux Senokot S2 at at bedtime to prevent constipation Patient at home prior to surgery was on Vesicare 10 mg daily for incontinence. Here she is on [place] 20 mg twice a day. Zolpidem 10 mg at at bedtime as needed for sleep. Diazepam 2.5 mg - 5 mg every 8 hours when necessary for muscle spasms and anxiety Patient is on aspirin 325 mg twice a day. In light of her anemia would consider holding for now. If patient is transferred to [facility] I will follow her there. Please call if any questions or concerns. Discussed with patient and nursing staff this morning. Follow-up admission labs to be done at the detention.
[2017-12-09] MEDS: SODIUM CHLORIDE 0.9% 1,000 ML IV SCH (12:32)
[2017-12-09 15:36] VITALS: BP 118/72; PULSE 83; RESP 16
== END 2017-12-09 17:09 | DRG 470 ==
LOC: 2ORMAIN 07:00 → 3SUR 14:21
PROVIDERS: ADMIT Orthopaedic Surgery; ATTEND Orthopaedic Surgery
PROC: 0SRB06A Replacement of Left Hip Joint with Oxidized Zirconium on Polyethylene Synthetic Substitute, Uncemented, Open Approach (ICD-10-PCS; principal; 2017-12-06 09:20)
DX: M16.0 Bilateral primary osteoarthritis of hip (principal); I10 Essential (primary) hypertension; E78.5 Hyperlipidemia, unspecified; E03.9 Hypothyroidism, unspecified; Z96.1 Presence of intraocular lens; M79.7 Fibromyalgia; K21.9 Gastro-esophageal reflux disease without esophagitis; F41.1 Generalized anxiety disorder; Z82.49 Family history of ischemic heart disease and other diseases of the circulatory system; Z80.3 Family history of malignant neoplasm of breast; Z80.49 Family history of malignant neoplasm of other genital organs; Z80.8 Family history of malignant neoplasm of other organs or systems; Z83.3 Family history of diabetes mellitus; Z87.891 Personal history of nicotine dependence; Z88.0 Allergy status to penicillin; Z88.8 Allergy status to other drugs, medicaments and biological substances; Z88.5 Allergy status to narcotic agent; Z88.1 Allergy status to other antibiotic agents; Z79.891 Long term (current) use of opiate analgesic; Z79.899 Other long term (current) drug therapy; Z98.42 Cataract extraction status, left eye; Z90.710 Acquired absence of both cervix and uterus; Z90.49 Acquired absence of other specified parts of digestive tract; Z98.41 Cataract extraction status, right eye; D50.0 Iron deficiency anemia secondary to blood loss (chronic)
CPT/HCPCS: 36415; 71045; 73501; 80048; 81001; 83605; 85025; 86850; 86891; 86900; 86901; 87040; 87086; 88300

== ENCOUNTER → 2018-05-01 | Outpatient (CLI) | payer MEDICARE ==
[2018-05-01 13:35] LABS: HCT 40.3 % (34.0-46.0); Hypochromasia Slight; MCH 31.8 pg (25.0-35.0); MCHC 32.3 g/dL (31.0-37.0); MCV 98.5 fL (80.0-100.0); Mean Platelet Volume 6.5; Platelet Count 339 k/uL (150-450); RDW 13.6 % (11.5-15.5); WBC 6.6 k/uL (3.8-10.6)
[2018-05-01 13:41] LABS: INR 0.9 (<1.2); Partial Thromboplastin Time 22.2 sec (22.0-30.0); Prothrombin Time 9.9 sec (9.0-12.0)
[2018-05-01 13:49] LABS: Appearance,Urine Clear (Clear); Bilirubin,Urine Negative (Negative); Blood,Urine Negative (Negative); Color,Urine Colorless; Glucose,Urine (UA) Negative (Negative); Ketones,Urine Negative (Negative); Leukocyte Esterase,Urine Negative (Negative); Nitrite,Urine Negative (Negative); Protein,Urine Negative (Negative); Specific Gravity,Urine 1.004 (1.001-1.035); Urobilinogen,Urine <2.0 mg/dL (<2.0)
[2018-05-01 14:01] LABS: ALT 33 U/L (9-52); AST 35 U/L (14-36); Albumin 4.6 g/dL (3.5-5.0); Alkaline Phosphatase 88 U/L (38-126); Anion Gap 10 mmol/L; Blood Urea Nitrogen 11 mg/dL (7-17); Calcium 9.5 mg/dL (8.4-10.2); Carbon Dioxide 23 mmol/L (22-30); Chloride 108 mmol/L (98-107); Glucose 87 mg/dL (74-99); Potassium 4.3 mmol/L (3.5-5.1); Sodium 141 mmol/L (137-145); Total Bilirubin 0.6 mg/dL (0.2-1.3); Total Protein 7.2 g/dL (6.3-8.2)
== END | disposition home or self-care (01) ==
LOC: LABPAT 12:04
PROVIDERS: ATTEND Orthopaedic Surgery
DX: Z01.812 Encounter for preprocedural laboratory examination (principal); Z79.01 Long term (current) use of anticoagulants
CPT/HCPCS: 80053; 81003; 85027; 85610; 85730; 87070

== ENCOUNTER 2018-05-09 11:30 | Inpatient (IN) | payer MEDICARE ==
--- NOTE | 2018-04-26 00:03 | CONS ---
CONSULTATION HISTORY: Ms. Nur is a 72-year-old female who is scheduled for orthopedic surgery with a total right hip arthroplasty anterior approach, by Dr. Eric King. Plans are for the surgery May 09, 2018, at [facility]. The patient states overall, other than her hip discomfort and difficulty ambulating secondary to that, that she has been generally feeling well. PAST MEDICAL HISTORY: Left hip done earlier this year and generally did well postop and recovered well at halfway and home. She does have a history of hypertension, gastroesophageal reflux, history of generalized anxiety disorder, there is a history of previous seizures in the past, history of ulcerative colitis that required surgery and she is now post ileostomy. She has chronic pain syndrome from her joints, back problems, and also history of fibromyalgia, history of hyperlipidemia. ALLERGIES: The patient does have a list of allergies that include PENICILLIN and KEFLEX along with ATORVASTATIN, LOPID, COMPAZINE, INDERAL, CODEINE. HOME MEDICATIONS: 1. Parafon Forte 500 mg 1 four times a day as a muscle relaxant. 2. Cymbalta 30 mg delayed release twice a day for her fibromyalgia. 3. Acetaminophen hydrocodone 325, 10 mg up to 4 times a day that she is on for chronic pain. 4. Ambien 10 mg for insomnia at night. 5. Diclofenac 50 mg delayed release. She takes up to 4 times a day for generalized pain as an anti-inflammatory medicine. 6. VESIcare 10 mg daily. 7. Meclizine 12.5 up to 4 times a day for vertigo as needed. 8. Amlodipine 10 mg daily for hypertension. 9. Acyclovir 200 mg of 4 times a day for suppression of herpes. 10.Protonix 40 mg daily. 11.Crestor 5 mg for hyperlipidemia every other day. REVIEW OF SYSTEMS: Negative for any unusual chest pain or shortness of breath. No nausea or vomiting. No urinary or bowel symptoms. She does have a urostomy. She has had no problems with edema. No visual disturbances or headaches. PREVIOUS SURGICAL HISTORY: Includes hernia repair, cholecystectomy, appendectomy. She did have lap band, which was removed. She has had a vagotomy and previous gastric surgery. She did have an ileostomy after surgery for her inflammatory bowel disease/ulcerative colitis. She has had hysterectomy, suspension bladder surgery. She has had lumbar back surgery. SOCIAL HISTORY: She is a former smoker. Denies any excessive alcohol usage. She lives locally with her in the area. FAMILY HISTORY: Noncontributory. PHYSICAL EXAMINATION: Vital signs showing a blood pressure 118/62, she is 163 pounds, 61 inches tall, giving her a BMI of 30. Respirations are 16 and she is afebrile. HEENT is unremarkable. Neck is not stiff. There is no adenopathy, thyromegaly or bruits detected. Breasts and pelvic exams deferred. Lungs were clear to auscultation. Heart tones were regular without murmur. Abdomen soft and nontender without rebound, guarding, or masses. She does have an ileostomy in place in the lower quadrants. Extremities revealed no edema. Neurologically, she is alert and oriented cranial nerves intact. No focal weakness noted. DIAGNOSTIC DATA: She did have an EKG back in November, which showed normal sinus rhythm and no evidence of acute ischemic changes. Her preop labs are pending. IMPRESSION AND PLAN: At this time with her chronic medical problems as listed above, I see no definite contraindication for planned surgery, as they appear to be stable and controlled. We will await results of her preop laboratory testing. I did ask her to hold her back diclofenac/anti-inflammatory medication and she can use Tylenol for 1 week prior to her surgery as needed for additional pain relief. Patient had initial low blood pressure postoperatively that has appeared to respond to fluid therapy. Discussed with nursing staff and reviewed home medications. Please see orders. Continue to advance as per orthopedics. MMODL / IJN: [id number] / ILIANA
[2018-05-08 09:07] VITALS: BMI 32.2
[~2018-05-09 11:30] MED LIST changes: -ACETAMINOPHEN TAB 500 MG TAB PO ONE; -DEXAMETHASONE SOD PHOSPHATE 10 MG/ML 1 ML VIAL IV ONE; -MELOXICAM 7.5 MG TAB PO ONE; -MIDAZOLAM 2 MG/2 ML VIAL IV PRN; -ONDANSETRON 4 MG/2 ML VIAL IVP ONE; +Pre Op ABX Message 1 EACH MISC MISCELLANE ONE; -VANCOMYCIN 1,000 MG in SODIUM CHLORIDE 0.9% 250 ML IVPB ONE; +ceFAZolin IN SWFI 2 GM/20 ML SYRINGE IVP ONE; +fentaNYL (PF) 50 MCG/ML 2 ML AMP IV PRN
[2018-05-09] MEDS ORDERED: ROPIVACAINE 246.25 MG, EPINEPHrine 0.5 MG, cloNIDine HCL/PF 80 MCG, WATER FOR INJECTION... MISCELLANE ONE ×12 (12:30→13:14)
[2018-05-09] MEDS: LACTATED RINGERS 1,000 ML IV SCH (12:36)
[2018-05-09] MEDS: ACETAMINOPHEN TAB 500 MG TAB PO ONE ×2 (12:43→16:36)
[2018-05-09] MEDS: ONDANSETRON 4 MG/2 ML VIAL IVP ONE ×2 (12:44→16:36)
[2018-05-09] MEDS ORDERED: HYDROcodone/APAP 7.5-325MG 1 EACH TAB PO PRN (13:15)
[2018-05-09] MEDS ORDERED: hydrOXYzine PAMOATE 25 MG CAP PO PRN (13:15)
[2018-05-09] MEDS ORDERED: MAGNESIUM HYDROXIDE 2,400 MG/10 ML CUP PO PRN (13:15)
[2018-05-09] MEDS ORDERED: HYDROmorphone 0.5 MG/0.5 ML SYRINGE IVP PRN ×2 (13:15)
[2018-05-09] MEDS ORDERED: NALOXONE 0.4 MG/ML 1 ML VIAL IV PRN (13:15)
[2018-05-09] MEDS ORDERED: ONDANSETRON 4 MG/2 ML VIAL IVP PRN (13:15)
[2018-05-09] MEDS ORDERED: fentaNYL (PF) 50 MCG/ML 2 ML AMP ONE (13:38)
[2018-05-09] MEDS ORDERED: ePHEDrine SULFATE/0.9% NACL/PF 50 MG/5 ML SYRINGE IV ONE (13:38)
[2018-05-09] MEDS ORDERED: PROPOFOL 10 MG/ML 20 ML VIAL IV ONE (13:38)
[2018-05-09] MEDS ORDERED: LACTATED RINGERS 1,000 ML BAG IV ONE (13:38)
[2018-05-09] MEDS ORDERED: LIDOCAINE 1% INJ 10MG/ML (20 ML MDV) ONE (13:38)
[2018-05-09] MEDS ORDERED: PHENYLEPHRINE-0.9% NACL SYG 1 MG/10 ML SYRINGE ONE (13:38)
[2018-05-09] MEDS ORDERED: WATER FOR INJECTION, STERILE 10 ML VIAL IV ONE (13:38)
[2018-05-09] MEDS ORDERED: MIDAZOLAM 2 MG/2 ML VIAL ONE (13:38)
[2018-05-09] MEDS ORDERED: ceFAZolin 3,000 MG in SODIUM CHLORIDE 0.9% IRRIGATIO 3,000 ML IRRIGATION ONE (13:42)
--- NOTE | 2018-05-09 14:57 | P.OP ---
Date of Procedure: 05/09/18 Preoperative Diagnosis: Severe osteoarthritis right hip Postoperative Diagnosis: Severe osteoarthritis right hip Procedure(s) Performed: Right total hip arthroplasty with a direct anterior approach Implants: Escobedo and nephew Polarstem size 3 standard [employer]edo [employer] Nephew R3, 3 hole acetabular shell, 48 mm [employer]hew reflection 6.5 mm cancellus screw, 20 mm 2 [employer]hew R3, XLPE 20 acetabular liner [employer]edo [employer]hew Oxinium femoral head 32 m, +0 All components were press-fit. The articulation is Oxinium on polyethylene. Anesthesia: spinal Surgeon: Eric King Front Office Help #1: Tala Zabala Estimated Blood Loss (ml): 300 (55 mL returned with Cell Saver) Pathology: other (Femoral head) Condition: stable Disposition: PACU Indications for Procedure: After failure of conservative treatment we discussed the surgical and nonsurgical treatment options at length. Patient wishes to proceed with a total hip arthroplasty with a direct anterior approach. Complications specific to this procedure were discussed at length, including but not limited to infection, leg length discrepancy, dislocation, and nerve injury. Patient is aware of all these complications and informed consent was obtained Operative Findings: The operative findings are consistent with severe osteoarthritis of the right hip Description of Procedure: Patient was seen and evaluated in the preoperative area, consent was reviewed, and the surgical site was marked with a skin marker. Patient was then brought to the operating room and given prophylactic antibiotics intravenously. 1 g of Tranexamic acid was also given. A spinal anesthetic was administered by the anesthesia department. The patient was then placed on the [place] table with the bony prominences well-padded. The hip area was then prepped and draped in usual sterile fashion. A universal timeout was then performed, which confirmed the patient's name, surgical site, ALLERGIES, and procedure being performed. Next the incision site was located at 1 cm distal and 1 cm lateral to the anterior superior iliac spine. The skin and subcutaneous tissues were sharply incised. Incision was carefully dissected down to the fascia overlying the tensor fascia sidra muscle. This fascia was then incised in line with the incision. Next, using blunt finger dissection, the tensor fascia sidra muscle was dissected off its investing fascia. The muscle was then carefully retracted laterally with a cobra retractor over the lateral neck of the femur. Next, the circumflex vessels were identified and cauterized using the AquaMantis device. The anterior hip capsule was then exposed. The capsule was then opened and an inverted T fashion. Cobra retractors were then placed intracapsularly. The proximal femur was then visualized. The femoral neck was then osteotomized appropriate level above the lesser trochanter. Small amount of traction was placed with the [place] table. A small wedge of bone was then removed from the remaining femoral head. Next, using a corkscrew femoral head was easily removed from the acetabulum. On gross visual inspection, the femoral head had complete loss of articular cartilage in multiple periarticular osteophytes. Attention was then turned to the acetabulum. the acetabulum was exposed and any remaining labrum was excised. Sequential reaming of the acetabulum was performed using fluoroscopic guidance. When the appropriate size was reached, a trial was then placed. The position and fit of the trial was checked with fluoroscopy. The trial was then removed. Then, using fluoroscopic guidance, the final implant was impacted at 20 of anteversion and 40 of abduction, and fully seated in the acetabulum. 2 screws were then placed in the acetabulum. Again fluoroscopy was used to check position of the screws. Next, the liner was then impacted, with a 20 elevated liner located in the anterior superior quadrant. Component locking was confirmed. Attention was then directed to the femur. With the aid of the [place] table, the femur was externally rotated to approximately 130, extended, and abducted under the opposite leg. A side hook was then placed under the proximal femur, and the side hook elevator was used to elevate the proximal femur. Retractors were then placed. A capsular release was performed, as well as a release of the conjoined tendon, which afforded excellent visualization of the proximal femur. Next, a box osteotome was used to lateralize the proximal femur. A hand hose cutter was then used to locate the femoral canal. Sequential broaching was then performed with appropriate size which afforded excellent fixation in the proximal femur. A trial was then placed with appropriate head and neck, and the hip was gently reduced with the aid of the [place] table. Fluoroscopy was then used to check position of the components, as well as to ensure equal leg lengths. The hip was then gently dislocated and the trials were then removed. Final implants were then impacted and the hip was again reduced. Final fluoroscopic x-rays confirmed that the components were in anatomic position, as well as equal leg lengths. The hip was also taken through range of motion, and found to be stable. The hip was then copiously irrigated with antibiotic solution with pulsatile lavage. The hip was then irrigated with Irrisept solution. The soft tissues were then injected with a ropivacaine solution, which consisted of 246.25 mg of ropivacaine, 0.5 mg of epinephrine, 80 g of clonidine, and 48.45 mL of sterile water, for a total of 100 mL of fluid injected. A second dose of 1 g of Tranexamic acid was also given. the fascia was then closed with 2-0 strata fix suture. The subcutaneous tissue was closed with 3-0 Vicryl. The subcuticular tissue was closed with 3-0 strata fix suture. The skin was then closed with Dermabond glue and a sterile silver dressing. The patient was then transferred to the recovery room in stable condition. The legal assistant DUC Siegel was required due to the complexity of surgery, and the need for skilled regional vice president surgical sales for positioning, draping, exposure, retraction, and closure of the wound.
--- NOTE | 2018-05-09 15:14 | FL ---
EXAMINATION TYPE: FL guidance operating room, XR Hip Limited RT DATE OF EXAM: 05/09/2018 CLINICAL HISTORY: Right hip replacement. TECHNIQUE: Fluoroscopy. Intraoperative limited views right hip. COMPARISON: None. FINDINGS: Fluoroscopic guidance was provided during hip replacement procedure performed by Dr. No landeros. A total of 36 seconds of fluoroscopic time was utilized during the procedure and 2 spot fluoros copic intraoperative images are acquired. Intraoperative images acquired show satisfactory positioning of metallic prosthesis on frontal projec tion. IMPRESSION: As Above.
[2018-05-09] MEDS ORDERED: LACTATED RINGERS 1,000 ML IV ONE (15:16)
[2018-05-09] MEDS ORDERED: HYDROmorphone 1 MG/ML 1 ML SYRINGE IVP ONE ×2 (15:45→16:21)
--- NOTE | 2018-05-09 16:11 | XR ---
EXAMINATION TYPE: XR Hip Limited RT DATE OF EXAM: 05/09/2018 CLINICAL HISTORY: Postoperative evaluation TECHNIQUE: Single portable view of the right hip was submitted. FINDINGS: Noted are changes of total hip arthroplasty with femoral and acetabular components appearin g well seated. Alignment is anatomic. Postsurgical soft tissue changes are evident. IMPRESSION: Satisfactory postoperative alignment
[2018-05-09] MEDS: SODIUM CHLORIDE 0.9% 1,000 ML IV SCH (16:37)
[2018-05-09] MEDS ORDERED: diphenhydrAMINE 50 MG CAP PO PRN (16:48)
[2018-05-09] MEDS ORDERED: ZOLPIDEM 10 MG TAB PO PRN (16:48)
[2018-05-09] MEDS ORDERED: MECLIZINE 12.5 MG TAB PO PRN (16:48)
[2018-05-09] MEDS: HYDROmorphone 0.5 MG/0.5 ML SYRINGE IVP PRN ×3 (17:32→23:40)
[2018-05-09] MEDS: ACYCLOVIR 200 MG CAP PO SCH ×2 (17:32→20:54)
[2018-05-09] MEDS: DIAZEPAM 5 MG TAB PO PRN (18:40)
[2018-05-09] MEDS: PANTOPRAZOLE 40 MG TABLET PO SCH (20:53)
[2018-05-09] MEDS: DULoxetine HCL 30 MG CAPSULE.DR PO SCH (20:53)
[2018-05-09] MEDS: SENNOSIDES-DOCUSATE SODIUM 1 EACH TAB PO SCH (20:53)
[2018-05-09] MEDS: ASPIRIN 81 MG PO SCH (20:53)
[2018-05-09] MEDS: ceFAZolin IN SWFI 2 GM/20 ML SYRINGE IVP SCH (20:53)
[2018-05-10] MEDS: HYDROcodone/APAP 7.5-325MG 1 EACH TAB PO PRN ×4 (03:26→20:07)
[2018-05-10] MEDS: SODIUM CHLORIDE 0.9% 1,000 ML IV SCH ×2 (04:53→17:30)
[2018-05-10] MEDS: LACTATED RINGERS 1,000 ML IV SCH (05:28)
[2018-05-10] MEDS: ceFAZolin IN SWFI 2 GM/20 ML SYRINGE IVP SCH (05:52)
[2018-05-10] MEDS: HYDROmorphone 0.5 MG/0.5 ML SYRINGE IVP PRN ×5 (06:37→23:17)
[2018-05-10 07:03] LABS: Basophils % (A) 0 %; Eosinophils # (A) 0.1 k/uL (0-0.7); Eosinophils % (A) 1 %; HCT 29.9 % (34.0-46.0); Hypochromasia Moderate; Lymphocytes # (A) 0.9 k/uL (1.0-4.8); Lymphocytes % (A) 11 %; MCH 30.4 pg (25.0-35.0); MCHC 30.7 g/dL (31.0-37.0); Mean Platelet Volume 6.7; Monocytes # (A) 0.3 k/uL (0-1.0); Monocytes % (A) 4 %; Neutrophils # (A) 6.6 k/uL (1.3-7.7); Neutrophils % (A) 82 %; Platelet Count 246 k/uL (150-450); RBC 3.02 m/uL (3.80-5.40); RDW 13.4 % (11.5-15.5); WBC 8.1 k/uL (3.8-10.6)
[2018-05-10 07:05] LABS: HGB 9.2 gm/dL (11.4-16.0)
--- NOTE | 2018-05-10 08:34 | P.PN ---
Progress Note - Text The patient is status post right hip surgery yesterday by orthopedics Dr. Eric King. This morning she complains of surgical site pain. She denies any nausea or vomiting. No shortness of breath. No chest pain. She is overall alert and oriented and easily aroused this morning. Temperature is 98.6 with a pulse of 68 respirations 16. Blood pressure is 87/ 54. And she is 91% saturated. Lungs are clear. Heart tones were regular. Abdomen is soft and nontender. No unusual distal edema noted. No focal neurological deficits. Cranial nerves intact. Laboratory White count is 8.1 with a platelet count of 246. Hemoglobin has dropped to 9.2 likely related to expected blood loss anemia post surgery. Impressions The patient has had some mild hypotension post surgery. Likely related to anesthesia and medications and element of anemia. We'll continue to hold her Norvasc that she was on for her hypertension at home. Slowly advance activities as per orthopedics as tolerated.
--- NOTE | 2018-05-10 09:16 | P.PN ---
Subjective Progress Note Date: 05/10/18 This is a 72-year-old female who is status post right total hip arthroplasty. This is postoperative day #1 and patient is seen and evaluated at bedside with Dr. Eric King. Patient does report pain to the right hip today. Patient denies any fever/chills, numbness, weakness, tingling, abdominal pain, shortness of breath or chest pain. Objective - Vital Signs Vital signs: Vital Signs Temp 98.6 F 05/10/18 07:00 Pulse 68 05/10/18 07:00 Resp 16 05/10/18 07:00 BP 87/54 05/10/18 07:00 Pulse Ox 91 L 05/10/18 07:00 Intake & Output 05/09/18 05/10/18 05/10/18 18:59 06:59 18:59 Intake Total 1301 800 Output Total 300 Balance 1001 800 Weight 75.2 kg Intake: IV 1301 Intake, IV Titration 800 Amount Sodium Chloride 0.9% 1, 800 000 ml @ 100 mls/hr IV . Q10H DARNELL Rx#:[id number] Output: Estimated Blood Loss 300 Other: Voiding Method Toilet # Voids 3 - Exam Vital signs are stable. Patient is in no acute distress and is alert and oriented 3. Calf is soft and nontender to palpation. Dressing is clean, dry, and intact. Patient has full foot and ankle motion without pain or difficulty. Neurovascular status and circulatory status are intact. - Labs CBC & Chem 7: 05/10/18 06:07 Labs: Abnormal Lab Results - Last 24 Hours (Table) 05/10/18 Range/Units 06:07 RBC 3.02 L (3.80-5.40) m/uL Hgb 9.2 L D (11.4-16.0) gm/dL Hct 29.9 L (34.0-46.0) % MCHC 30.7 L (31.0-37.0) g/dL Lymphocytes # 0.9 L (1.0-4.8) k/uL Assessment and Plan Assessment: Asthma Heart failure COPD Hyperlipidemia Hypertension History of myocardial infarction History of syncope Ulcerative colitis Legally blind, left eye. (1) Osteoarthritis of right hip Current Visit: Yes Status: Acute Code(s): M16.11 - UNILATERAL PRIMARY OSTEOARTHRITIS, RIGHT HIP SNOMED Code(s): 288460728656278 (2) Status post total replacement of right hip Current Visit: Yes Status: Acute Code(s): Z96.641 - PRESENCE OF RIGHT ARTIFICIAL HIP JOINT SNOMED Code(s): 435038855084 Plan: Continue routine postop care. Continue antocoagulation with aspirin 81 mg twice a day. Weightbearing as tolerated with a walker. Leave dressing in place for 10 days. Likely discharge to rehab in the next 1-2 days.
[2018-05-10] MEDS: ACYCLOVIR 200 MG CAP PO SCH ×4 (09:41→21:00)
[2018-05-10] MEDS: DULoxetine HCL 30 MG CAPSULE.DR PO SCH ×2 (09:41→21:00)
[2018-05-10] MEDS: LORATADINE 10 MG TAB PO SCH (09:41)
[2018-05-10] MEDS: TROSPIUM CHLORIDE 20 MG TABLET PO SCH ×2 (09:42→21:00)
[2018-05-10] MEDS: ASPIRIN 81 MG PO SCH (11:22)
[2018-05-10] MEDS: RIVAROXABAN 10 MG TAB PO SCH (12:05)
[2018-05-10] MEDS: SENNOSIDES-DOCUSATE SODIUM 1 EACH TAB PO SCH (21:00)
[2018-05-10] MEDS: PANTOPRAZOLE 40 MG TABLET PO SCH (21:00)
[2018-05-10] MEDS: ACETAMINOPHEN TAB 325 MG TAB PO PRN (21:00)
[2018-05-11] MEDS: SODIUM CHLORIDE 0.9% 1,000 ML IV SCH ×3 (00:44→21:35)
[2018-05-11] MEDS: HYDROcodone/APAP 7.5-325MG 1 EACH TAB PO PRN (03:58)
[2018-05-11] MEDS: LACTATED RINGERS 1,000 ML IV SCH (05:57)
--- NOTE | 2018-05-11 07:53 | P.PN ---
Progress Note - Text The patient is a 72-year-old female who is status post right hip surgery 2 days previous. The patient is alert and oriented. Still having a lot of pain at the surgical site. Denies any shortness of breath or chest pain. No cough. She denies any dysuria. No nausea or vomiting. Patient has had a low-grade temperature from 101-100 on the last 3 determinations. Pulse is 86 with respirations 16 and blood pressure 91/59. She is 91% saturated on room air. Lung and heart examination though was clear and regular. No murmurs. Abdomen soft and nontender. No unusual edema or calf tenderness noted. She is alert and oriented. No focal neurological deficits noted. Lab testing pending this morning. Impression and plan Overall this 72-year-old female status post right hip surgery. Patient does have history of hypertension and previous smoking. She also has chronic pain from multiple sources for which she is been on home [place]. Related to postop temperature. She does not have any definite symptoms. IV site looks okay without erythema or tenderness. Discussed with nursing. Urinalysis and culture to be obtained. We'll follow her vital signs further. We will continue to hold her Norvasc until her blood pressure increases.
[2018-05-11] MEDS ORDERED: HYDROcodone/APAP 10-325MG 1 EACH TAB PO PRN (08:24)
--- NOTE | 2018-05-11 08:33 | P.PN ---
Subjective Progress Note Date: 05/11/18 This is a 72-year-old female who is status post right total hip arthroplasty. This is postoperative day #2 and patient is seen and evaluated at bedside with Dr. Eric King. Patient does report pain to the right hip today and states that she still needs assistance transferring out of bed. Patient denies any fever/chills, numbness, weakness, tingling, abdominal pain, shortness of breath or chest pain. Objective - Vital Signs Vital signs: Vital Signs Temp 101.0 F H 05/11/18 01:00 Pulse 86 05/11/18 01:00 Resp 16 05/11/18 01:00 BP 91/59 05/11/18 01:00 Pulse Ox 97 05/10/18 20:15 Intake & Output 05/10/18 05/11/18 05/11/18 18:59 06:59 18:59 Intake Total 120 1550 Balance 120 1550 Weight 76 kg Intake: Oral 120 1550 Other: # Voids 1 2 - Exam Vital signs are stable. Patient is in no acute distress and is alert and oriented 3. Calf is soft and nontender to palpation. Dressing is clean, dry, and intact. Mild ecchymosis. No erythema. Patient has full foot and ankle motion without pain or difficulty. Neurovascular status and circulatory status are intact. - Labs CBC & Chem 7: 05/10/18 06:07 Assessment and Plan Assessment: Asthma Heart failure COPD Hyperlipidemia Hypertension History of myocardial infarction History of syncope Ulcerative colitis Legally blind, left eye. (1) Osteoarthritis of right hip Current Visit: Yes Status: Acute Code(s): M16.11 - UNILATERAL PRIMARY OSTEOARTHRITIS, RIGHT HIP SNOMED Code(s): 568362704288078 (2) Status post total replacement of right hip Current Visit: Yes Status: Acute Code(s): Z96.641 - PRESENCE OF RIGHT ARTIFICIAL HIP JOINT SNOMED Code(s): 597175201699 Plan: Continue routine postop care. Continue anticoagulation with Xarelto. Increase [place] to 10/325mg. Weightbearing as tolerated with a walker. Continue physical therapy. Low grade fevers. Encouraged use of incentive spirometer. UA is ordered. Appreciate input from medicine. Leave dressing in place for 10 days. Likely discharge to rehab in the next 1-2 days.
[2018-05-11 08:51] LABS: Anion Gap 7 mmol/L; Blood Urea Nitrogen 8 mg/dL (7-17); Calcium 8.4 mg/dL (8.4-10.2); Carbon Dioxide 23 mmol/L (22-30); Chloride 106 mmol/L (98-107); Glucose 112 mg/dL (74-99); Sodium 136 mmol/L (137-145)
[2018-05-11] MEDS: HYDROcodone/APAP 10-325MG 1 EACH TAB PO PRN ×3 (09:03→21:31)
[2018-05-11] MEDS: LORATADINE 10 MG TAB PO SCH (09:04)
[2018-05-11] MEDS: RIVAROXABAN 10 MG TAB PO SCH (09:04)
[2018-05-11] MEDS: TROSPIUM CHLORIDE 20 MG TABLET PO SCH ×2 (09:04→21:32)
[2018-05-11] MEDS: DULoxetine HCL 30 MG CAPSULE.DR PO SCH ×2 (09:04→21:32)
[2018-05-11] MEDS: ACYCLOVIR 200 MG CAP PO SCH ×4 (09:04→22:02)
[2018-05-11] MEDS: HYDROmorphone 0.5 MG/0.5 ML SYRINGE IVP PRN ×4 (12:05→23:42)
[2018-05-11] MEDS: ACETAMINOPHEN TAB 325 MG TAB PO PRN (15:30)
--- NOTE | 2018-05-11 16:59 | XR ---
EXAMINATION TYPE: XR chest 1V portable DATE OF EXAM: 05/11/2018 COMPARISON: 12/08/2017 HISTORY: Fever TECHNIQUE: Single frontal view of the chest is obtained. FINDINGS: There is no heart failure nor confluent pneumonic infiltrate. Costophrenic angles are bassam r. There are clips at the gastroesophageal junction. Thoracic aorta is atheromatous. IMPRESSION: No active cardiopulmonary disease. No change.
[2018-05-11 19:38] LABS: Appearance,Urine Clear (Clear); Bilirubin,Urine Negative (Negative); Blood,Urine Negative (Negative); Color,Urine Yellow; Glucose,Urine (UA) Negative (Negative); Ketones,Urine Negative (Negative); Leukocyte Esterase,Urine Small (Negative); Mucus,Urine Rare /hpf; Nitrite,Urine Negative (Negative); Protein,Urine Trace (Negative); RBC,Urine 1 /hpf (0-5); Specific Gravity,Urine 1.013 (1.001-1.035); Squamous Epithelial Cell,Urine <1 /hpf (0-4); Urobilinogen,Urine <2.0 mg/dL (<2.0); WBC,Urine 21 /hpf (0-5)
[2018-05-11] MEDS: CIPROFLOXACIN HCL 250 MG TAB PO SCH (21:32)
[2018-05-11] MEDS: PANTOPRAZOLE 40 MG TABLET PO SCH (21:32)
[2018-05-11] MEDS: SENNOSIDES-DOCUSATE SODIUM 1 EACH TAB PO SCH (21:35)
[2018-05-11] MEDS: DIAZEPAM 5 MG TAB PO PRN (21:39)
[2018-05-12] MEDS: HYDROcodone/APAP 10-325MG 1 EACH TAB PO PRN ×3 (03:06→14:18)
[2018-05-12] MEDS: HYDROmorphone 0.5 MG/0.5 ML SYRINGE IVP PRN ×2 (04:37→07:35)
[2018-05-12] MEDS: LACTATED RINGERS 1,000 ML IV SCH (04:43)
--- NOTE | 2018-05-12 08:01 | P.PN ---
Progress Note - Text The patient is a 72-year-old female who is status post right hip surgery 3 days previous. She is aroused easily this morning and is generally alert and oriented. Still complaining of right hip area discomfort. She denies any chest pain, cough or shortness of breath. No nausea or vomiting. Temperature was low-grade 100.2 but is now down to 98.7 axillary. Blood pressure is 108/73 and she is 96% saturated on room air. Respirations are 16. Lung and heart exam is clear. Abdomen is nontender. No lower extremity tenderness in the calf muscles or edema. No focal neurological deficits. She is alert and oriented. Urinalysis from yesterday showed a small amount of leukocyte esterase and only 21 white cells present. Culture is pending. Chest x-ray was unremarkable. Impressions and plans Patient has intermittently had a low-grade temperature postop. Presently it is normal. She did have some pyuria on urinalysis and has been started on Cipro pending culture. Would likely continue pending results of culture. Continue activity and physical therapy as per orthopedics. Would continue to hold Norvasc for her blood pressure.
--- NOTE | 2018-05-12 08:47 | P.DS ---
Providers Date of admission: 05/09/18 11:40 Expected date of discharge: 05/12/18 Attending physician: Eric King Consults: 05/09/18 13:15 Consult Physician Routine Consulting Provider: Jim Ward Reason/Comments: medical management Do you want consulting provider notified?: Yes Primary care physician: Jim Ward - Discharge Diagnosis(es) (1) Osteoarthritis of right hip Current Visit: Yes Status: Acute (2) Status post total replacement of right hip Current Visit: Yes Status: Acute Hospital Course: This is a 72-year-old female with known history of degenerative arthritis of the right hip. The patient presents for evaluation. After discussion and consideration patient elects to proceed with total hip arthroplasty. The patient is seen preoperatively by Dr. King and medically cleared for surgery by their primary care physician. Patient is admitted to [facility] on 05/09/2018 for total hip arthroplasty. The procedures performed without complication or sequelae. The patient is doing well postoperatively. Labs and vital signs are stable on day of discharge. On day of discharge patient's hip incision is healing well. There is minimal erythema. There is no drainage noted at this time. There is minimal soft tissue swelling to the hip and thigh. Patient has full foot and ankle motion without difficulty or pain. Neurovascular status to the right lower extremity is intact. Patient is discharged to rehab in good condition. Please see med rec for accurate list of home medications. Plan - Discharge Summary Discharge Rx Participant: No New Discharge Prescriptions: New HYDROcodone/APAP 10-325MG [[place] 10-325] 1 - 2 tab PO Q6H PRN #56 tab PRN Reason: Pain Rivaroxaban [Xarelto] 10 mg PO DAILY #32 tab Sennosides [Senokot] 1 tab PO BID #60 tablet No Action diphenhydrAMINE [Benadryl] 50 mg PO QID PRN PRN Reason: Itching Pantoprazole Sodium [Protonix] 40 mg PO HS Acyclovir [Zovirax] 200 mg PO QID Meclizine [Antivert] 12.5 mg PO QID Solifenacin Succinate [Vesicare] 10 mg PO DAILY Diclofenac Sodium [Voltaren] 50 mg PO QID DULoxetine HCL [Cymbalta] 30 mg PO BID Chlorzoxazone [Parafon Forte DSC] 500 mg PO QID Fexofenadine HCl [Amna Allergy] 180 mg PO DAILY amLODIPine [Norvasc] 10 mg PO DAILY Zolpidem [Ambien] 10 mg PO HS PRN PRN Reason: Insomnia HYDROcodone/APAP 10-325MG [[place] 10-325] 1 tab PO QID Discharge Medication List Acyclovir [Zovirax] 200 mg PO QID 08/17/13 [History] Meclizine [Antivert] 12.5 mg PO QID 08/17/13 [History] Pantoprazole Sodium [Protonix] 40 mg PO HS 08/17/13 [History] Solifenacin Succinate [Vesicare] 10 mg PO DAILY 08/17/13 [History] diphenhydrAMINE [Benadryl] 50 mg PO QID PRN 08/17/13 [History] Chlorzoxazone [Parafon Forte DSC] 500 mg PO QID 05/04/18 [History] DULoxetine HCL [Cymbalta] 30 mg PO BID 05/04/18 [History] Diclofenac Sodium [Voltaren] 50 mg PO QID 05/04/18 [History] Fexofenadine HCl [Amna Allergy] 180 mg PO DAILY 05/08/18 [History] HYDROcodone/APAP 10-325MG [[place] 10-325] 1 tab PO QID 05/08/18 [History] Zolpidem [Ambien] 10 mg PO HS PRN 05/08/18 [History] amLODIPine [Norvasc] 10 mg PO DAILY 05/08/18 [History] HYDROcodone/APAP 10-325MG [[place] 10-325] 1 - 2 tab PO Q6H PRN #56 tab 05/12/18 [ Rx] Rivaroxaban [Xarelto] 10 mg PO DAILY #32 tab 05/12/18 [Rx] Sennosides [Senokot] 1 tab PO BID #60 tablet 05/12/18 [Rx] Follow up Appointment(s)/Referral(s): [facility], [NON-STAFF] - As Needed [facility], [NON-STAFF] - As Needed Eric King DO [Doctor of Osteopathic Medicine] - 05/24/18 1:30 pm Activity/Diet/Wound Care/Special Instructions: Weightbearing as tolerated with walker. Leave dressing intact. Dressing may be removed by home care nurse in 10 days. May shower with dressing on. Please follow-up with [facility] in 2 weeks and call with any questions or concerns, . Discharge Disposition: TRANSFER TO SNF/ECF
[2018-05-12] MEDS: DIAZEPAM 5 MG TAB PO PRN (08:53)
[2018-05-12] MEDS: TROSPIUM CHLORIDE 20 MG TABLET PO SCH (08:54)
[2018-05-12] MEDS: DULoxetine HCL 30 MG CAPSULE.DR PO SCH (08:54)
[2018-05-12] MEDS: ACYCLOVIR 200 MG CAP PO SCH ×2 (08:54→14:19)
[2018-05-12] MEDS: LORATADINE 10 MG TAB PO SCH (08:55)
[2018-05-12] MEDS: CIPROFLOXACIN HCL 250 MG TAB PO SCH (08:55)
[2018-05-12] MEDS: RIVAROXABAN 10 MG TAB PO SCH (08:55)
[2018-05-12 09:09] LABS: Basophils % (A) 0 %; Eosinophils # (A) 0.3 k/uL (0-0.7); Eosinophils % (A) 3 %; HCT 26.4 % (34.0-46.0); HGB 8.7 gm/dL (11.4-16.0); Hypochromasia Slight; Lymphocytes # (A) 1.9 k/uL (1.0-4.8); Lymphocytes % (A) 15 %; MCH 32.2 pg (25.0-35.0); MCHC 33.1 g/dL (31.0-37.0); MCV 97.3 fL (80.0-100.0); Mean Platelet Volume 6.9; Monocytes # (A) 0.7 k/uL (0-1.0); Monocytes % (A) 5 %; Neutrophils # (A) 9.4 k/uL (1.3-7.7); Neutrophils % (A) 76 %; Platelet Count 259 k/uL (150-450); RBC 2.71 m/uL (3.80-5.40); RDW 13.4 % (11.5-15.5); WBC 12.4 k/uL (3.8-10.6)
[2018-05-12 10:08] LABS: Polychromasia Present
[2018-05-12] MEDS: SODIUM CHLORIDE 0.9% 1,000 ML IV SCH (11:45)
[2018-05-12 15:29] VITALS: BP 90/51; PULSE 73; RESP 17; TEMP 99.2
--- NOTE | 2018-05-17 13:33 | CDI ---
Date: 05/17/2018 7:40:48 AM From: HERNESTO Kamara; Deann Peres, Mortgage Processing Manager Phone: If you have a question about this query, please contact Deann Peres Mortgage Processing Manager at [phone] between 8am and 5pm. Admit Date: 05/09/2018 11:40:00 AM Patient Name: Kenzie Nur Visit Number: [id number] Discharge Date: 05/12/2018 4:19:00 PM ATTENTION: The Clinical Documentation Specialists (CDI) and [facility] Coding Staff appreciate your assistance in clarifying documentation. Please respond to the clarification below the line at the bottom and electronically sign. The CDI & [facility] Coding staff will review the response and follow-up if needed. Please note: Queries are made part of the Legal Health Record. If you have any questions, please contact the author of this message via ITS. Dr. Jim Ward The patient presented for total right hip arthroplasty, which was performed on . On progress note 05/10 there is documentation of mild hypotension (87/ 54) post surgery, likely related to anesthesia, medications and element of anemia. Norvasc was held. Blood pressures from 05-10 to 2-1 are 97/54, 87/54, 91/59, 108/73. History/Risk Factors: Hypertension, GERD, chronic pain syndrome, hyperlipidema , fibromyalgia. Lab findings: Hemoglobin 9.2 Treatment: Hold Norvasc In your professional opinion, can you please clarify? Mild hypotension is clinically significant Mild hypotension is not clinically significant Other, please specify Unable to determine mild hypotenion. clinically significant. RRD. MTDD
== END 2018-05-12 16:19 | DRG 470 ==
LOC: 2ORMAIN 11:40 → 4SSUR 15:39
PROVIDERS: ADMIT Orthopaedic Surgery; ATTEND Orthopaedic Surgery
PROC: 0SR906A Replacement of Right Hip Joint with Oxidized Zirconium on Polyethylene Synthetic Substitute, Uncemented, Open Approach (ICD-10-PCS; principal; 2018-05-09 13:50)
DX: M16.11 Unilateral primary osteoarthritis, right hip (principal); B00.9 Herpesviral infection, unspecified; E78.5 Hyperlipidemia, unspecified; F41.1 Generalized anxiety disorder; G47.00 Insomnia, unspecified; G89.4 Chronic pain syndrome; H54.8 Legal blindness, as defined in USA; I11.0 Hypertensive heart disease with heart failure; I25.2 Old myocardial infarction; I50.9 Heart failure, unspecified; J44.9 Chronic obstructive pulmonary disease, unspecified; K21.9 Gastro-esophageal reflux disease without esophagitis; M79.7 Fibromyalgia; Z79.899 Other long term (current) drug therapy; Z87.891 Personal history of nicotine dependence; Z88.5 Allergy status to narcotic agent; Z88.8 Allergy status to other drugs, medicaments and biological substances; Z88.1 Allergy status to other antibiotic agents; Z88.0 Allergy status to penicillin; Z79.891 Long term (current) use of opiate analgesic; Z90.49 Acquired absence of other specified parts of digestive tract; T41.0X5A Adverse effect of inhaled anesthetics, initial encounter; T50.905A Adverse effect of unspecified drugs, medicaments and biological substances, initial encounter; D64.9 Anemia, unspecified; I95.2 Hypotension due to drugs
CPT/HCPCS: 71045; 73501; 80048; 81001; 85025; 86850; 86891; 86900; 86901; 87086; 88300

== ENCOUNTER 2018-09-13 08:29 | Day surgery (SDC) | payer MEDICARE ==
[2018-09-08 15:04] VITALS: BMI 32.2
[~2018-09-13 08:29] MED LIST changes: +LACTATED RINGERS 1,000 ML IV SCH; -LIDOCAINE 1% 20 ML VIAL (10MG/ML) FOR IV START INTRADERMA PRN; -ROPIVACAINE 246.25 MG, EPINEPHrine 0.5 MG, KETOROLAC 30 MG, cloNIDine HCL/PF 80 MCG, WA... MISCELLANE ONE; -TRANEXAMIC ACID 1,000 MG in SODIUM CHLORIDE 0.9% 50 ML IVPB ONE; -ceFAZolin IN SWFI 2 GM/20 ML SYRINGE IVP ONE; -fentaNYL (PF) 50 MCG/ML 2 ML AMP IV PRN
[2018-09-13] MEDS ORDERED: LACTATED RINGERS 1,000 ML IV ONE (09:01)
[2018-09-13] MEDS ORDERED: ONDANSETRON 4 MG/2 ML VIAL IVP ONE (09:01)
[2018-09-13] MEDS ORDERED: LIDOCAINE 1% 20 ML VIAL (10MG/ML) FOR IV START INTRADERMA ONE (09:01)
--- NOTE | 2018-09-13 09:02 | P.GSHP ---
History of Present Illness H&P Date: 09/13/18 Chief Complaint: Iron deficiency anemia Patient with chronic history of iron deficiency anemia. Requires frequent iron infusions. Patient has poor IV access. Her today for Port-A-Cath placement for that reason. She has not had one previously. Past Medical History Past Medical History: Heart Failure, COPD, CVA/TIA, Hyperlipidemia, Hypertension, Myocardial Infarction ([place]), Syncope Additional Past Medical History / Comment(s): legally blind in left eye, ulcerative colitis,. bilateral carotid blockages being monitored by Dr. 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 She was 3 yrs in a hospital bed and 7 years in a w/c then learned to walk again. Port A Cath insertion for lron infusions. Has an ileostomy. Last Myocardial Infarction Date:: 1999 History of Any Multi-Drug Resistant Organisms: None Reported Past Surgical History: Appendectomy, Bowel Resection, Cholecystectomy, Heart Catheterization, Hernia Repair, Hysterectomy, Joint Replacement, Orthopedic Surgery, Tonsillectomy Additional Past Surgical History / Comment(s): back surgeries X 2 & at least 20 procedures on her back, ileostomy, total left knee, abdominal hernia repair X 2, bilateral cataracts removed, right shoulder sx x 2; large growth on back of head & inside of cheek removed, left hip replaced. Past Anesthesia/Blood Transfusion Reactions: Motion Sickness, Postoperative Nausea & Vomiting (PONV) Additional Past Anesthesia/Blood Transfusion Reaction / Comment(s): Pt states she does not have PONV with every surgery- just sometimes. Smoking Status: Former smoker - Past Family History Daughter(s) Family Medical History: Cancer Additional Family Medical History / Comment(s): DAUGHTER # 1-THYROID CANCER. DAUGHTER # 2-SKIN CANCER Father Family Medical History: Cancer, CVA/TIA, Myocardial Infarction ([place]) Additional Family Medical History / Comment(s): Cancer was skin cancer "about 30 times". Mother Family Medical History: Cancer, Myocardial Infarction ([place]) Additional Family Medical History / Comment(s): Mother had lung, uterine and breast cancer. Sister(s) Family Medical History: Cancer Additional Family Medical History / Comment(s): leukemia, of stroke Medications and Allergies Home Medications Medication Instructions Recorded Confirmed Type Acyclovir [Zovirax] 200 mg PO QID 08/17/13 09/08/18 History Meclizine [Antivert] 12.5 mg PO QID 08/17/13 09/08/18 History Pantoprazole Sodium [Protonix] 40 mg PO HS 08/17/13 09/08/18 History Solifenacin Succinate [Vesicare] 10 mg PO DAILY 08/17/13 09/08/18 History diphenhydrAMINE [Benadryl] 50 mg PO QID PRN 08/17/13 09/08/18 History Chlorzoxazone [Parafon Forte DSC] 500 mg PO QID 05/04/18 09/08/18 History DULoxetine HCL [Cymbalta] 30 mg PO BID 05/04/18 09/08/18 History Diclofenac Sodium [Voltaren] 50 mg PO QID 05/04/18 09/08/18 History Fexofenadine HCl [Amna Allergy] 180 mg PO DAILY 05/08/18 09/08/18 History Zolpidem [Ambien] 10 mg PO HS PRN 05/08/18 09/08/18 History HYDROcodone/APAP 10-325MG [[place] 1 - 2 tab PO Q6H PRN #56 tab 05/12/18 09/08/18 Rx 10-325] Sennosides [Senokot] 1 tab PO BID #60 tablet 05/12/18 09/08/18 Rx Allergies Allergy/AdvReac Type Severity Reaction Status Date / Time aspirin Allergy dizzy Verified 09/08/18 15:08 codeine Allergy causes Verified 09/08/18 15:08 severe pain gemfibrozil [From Lopid] Allergy Anaphylaxis Verified 09/08/18 15:08 latex Allergy Swelling, Verified 09/08/18 15:08 hives, itching meloxicam [From Mobic] Allergy Rash/Hives Verified 09/08/18 15:08 Penicillins Allergy Rash/Hives Verified 09/08/18 15:08 propranolol HCl Allergy Unknown Verified 09/08/18 15:08 [From Inderal LA] sucralfate [From Carafate] Allergy Anaphylaxis Verified 09/08/18 15:08 metronidazole [From Flagyl] AdvReac thrush Verified 09/08/18 15:08 propoxyphene HCl AdvReac Nausea & Verified 09/08/18 15:08 [From Darvon] Vomiting Surgical - Exam Vital Signs Temp Pulse Resp BP Pulse Ox 97.8 F 80 18 119/64 94 L 09/13/18 08:47 09/13/18 08:47 09/13/18 08:47 09/13/18 08:47 09/13/18 08:47 Physical exam: General: Well-developed, well-nourished HEENT: Normocephalic, sclerae nonicteric Abdomen: Nontender, nondistended Extremities: No edema Neuro: Alert and oriented Assessment and Plan (1) Anemia Narrative/Plan: Will proceed with Port-A-Cath placement at this time. We'll utilize 8-Congolese catheter. Risks of bleeding, infection, DVT, pneumothorax, catheter malfunction, anesthesia related complications were discussed. The patient understands and wishes to proceed. Current Visit: No Status: Chronic Priority: Medium Code(s): D64.9 - ANEMIA, UNSPECIFIED SNOMED Code(s): 274421184
[2018-09-13] MEDS ORDERED: HEPARIN SODIUM,PORCINE 100 UNIT/ML 5 ML VIAL IV ONE (09:14)
[2018-09-13] MEDS ORDERED: LIDOCAINE 1% INJ 10MG/ML (20 ML MDV) SQ ONE ×2 (09:15→09:57)
[2018-09-13] MEDS ORDERED: LIDOCAINE 1% INJ 10MG/ML (20 ML MDV) ONE (09:16)
[2018-09-13] MEDS ORDERED: fentaNYL (PF) 50 MCG/ML 2 ML AMP ONE (09:16)
[2018-09-13] MEDS ORDERED: PROPOFOL 10 MG/ML 20 ML VIAL IV ONE (09:16)
[2018-09-13] MEDS ORDERED: ePHEDrine SULFATE/0.9% NACL/PF 50 MG/5 ML SYRINGE IV ONE (09:16)
[2018-09-13] MEDS ORDERED: MIDAZOLAM 2 MG/2 ML VIAL ONE (09:16)
--- NOTE | 2018-09-13 10:17 | P.OP ---
Date of Procedure: 09/13/18 Procedure(s) Performed: PREOPERATIVE DIAGNOSIS: Iron deficiency anemia POSTOPERATIVE DIAGNOSIS: Same PROCEDURE: Port-A-Cath placement SURGEON: Lulu EBL: Minimal ANESTHESIA: Sedation COMPLICATIONS: None OPERATIVE PROCEDURE: Patient was brought and placed on the operative table in the supine position. The patient was sedated per anesthesia that time. The chest and neck were prepped and draped in usual sterile fashion. The ultrasound probe was used to identify the location of the right internal jugular vein. The skin was localized with lidocaine. The Seldinger needle was advanced into the IJ under ultrasound guidance. The wire was advanced through the needle under fluoroscopic guidance into the superior vena cava. A port pocket was created in the right infraclavicular location. The 8-Serbian catheter was tunneled from the wire entrance site to the port pocket. The port was then connected to the catheter. The dilator introducer was threaded over the guidewire. The guidewire and dilator were then removed. The catheter was advanced through the introducer and introducer was then removed. The tip was seen to be in the right atrial junction. Port was flushed with both saline and a Hep-Lock solution. There was good flow both in and out of the port. The port was sutured in underlying tissues using 3-0 silk sutures. The subcutaneous tissues were reapproximated using 3-0 Vicryl sutures and the skin at both locations using 4-0 Monocryl sutures. Skin glue and sterile dressings then applied. DISPOSITION: Stable to recovery room
[2018-09-13 10:24] VITALS: RESP 16; TEMP 97.4
[2018-09-13] MEDS ORDERED: NALOXONE 0.4 MG/ML 1 ML VIAL IV PRN (10:33)
[2018-09-13] MEDS ORDERED: HYDROcodone/APAP 5-325MG 1 EACH TAB PO PRN (10:33)
[2018-09-13 11:19] VITALS: BP 100/68; PULSE 84
--- NOTE | 2018-09-13 11:22 | XR ---
EXAMINATION TYPE: XR chest 1V portable DATE OF EXAM: 09/13/2018 COMPARISON: 05/11/2018 HISTORY: Status post Port-A-Cath insertion TECHNIQUE: Single frontal view of the chest is obtained. FINDINGS: There is chronic right hemidiaphragm elevation. Scattered areas of left basal atelectasis are seen. Right-sided Mediport terminates in the proximal superior vena cava. No postprocedural pneum othorax. Osseous demineralization and degenerative changes of the shoulders, right greater than left. Surgical clips near the gastroesophageal junction are present. Cardiomediastinal silhouette is stabl e. IMPRESSION: Status post right-sided Mediport insertion terminating in the proximal superior vena cav a without postprocedural pneumothorax.
--- NOTE | 2018-09-13 14:18 | FL ---
Fluoroscopy HISTORY: Port-A-Cath placement 3 seconds fluoroscopy time supplied to the referring clinician. 1 intraoperative C-arm images docume nt the procedure. See dictated report from general surgery.
== END 2018-09-13 11:55 | disposition home or self-care (01) ==
LOC: OR 08:29
PROVIDERS: ATTEND Surgery
DX: D50.9 Iron deficiency anemia, unspecified (principal); E78.5 Hyperlipidemia, unspecified; I11.0 Hypertensive heart disease with heart failure; I25.2 Old myocardial infarction; I50.9 Heart failure, unspecified; J44.9 Chronic obstructive pulmonary disease, unspecified; Z87.891 Personal history of nicotine dependence; Z88.0 Allergy status to penicillin; Z88.1 Allergy status to other antibiotic agents; Z88.8 Allergy status to other drugs, medicaments and biological substances; I69.311 Memory deficit following cerebral infarction; I69.393 Ataxia following cerebral infarction; Z90.49 Acquired absence of other specified parts of digestive tract; Z96.652 Presence of left artificial knee joint; Z98.42 Cataract extraction status, left eye; Z98.41 Cataract extraction status, right eye; Z96.642 Presence of left artificial hip joint; Z82.3 Family history of stroke; Z80.8 Family history of malignant neoplasm of other organs or systems; Z80.1 Family history of malignant neoplasm of trachea, bronchus and lung; Z80.3 Family history of malignant neoplasm of breast; Z79.891 Long term (current) use of opiate analgesic; Z79.899 Other long term (current) drug therapy; Z88.5 Allergy status to narcotic agent; Z88.6 Allergy status to analgesic agent; Z91.040 Latex allergy status
CPT/HCPCS: 77001; 71045; 36561; C1788; J2250; J1642; J2405; J2001; J3010; J2704

== ENCOUNTER → 2018-10-31 | Outpatient (CLI) | payer MEDICARE ==
[2018-10-31 12:52] VITALS: BP 159/83; PULSE 71; RESP 16; TEMP 98.6
[2018-10-31 13:12] LABS: African American GFR (CKD) >90 (>60 ml/min/1.73 sqM); Anion Gap 9 mmol/L; Blood Urea Nitrogen 13 mg/dL (7-17); Calcium 9.2 mg/dL (8.4-10.2); Carbon Dioxide 22 mmol/L (22-30); Chloride 103 mmol/L (98-107); Glucose 85 mg/dL (74-99); Potassium 4.3 mmol/L (3.5-5.1); Sodium 134 mmol/L (137-145)
[2018-10-31 14:44] LABS: HCT 39.9 % (34.0-46.0); HGB 12.7 gm/dL (11.4-16.0); MCH 31.5 pg (25.0-35.0); MCHC 31.8 g/dL (31.0-37.0); MCV 99.1 fL (80.0-100.0); Mean Platelet Volume 7.1; Platelet Count 342 k/uL (150-450); RBC 4.03 m/uL (3.80-5.40); WBC 7.6 k/uL (3.8-10.6)
[2018-10-31 19:01] LABS: Iron Saturation 26.56 (12.00-45.00)
== END | disposition home or self-care (01) ==
LOC: LABWHC1 11:57
PROVIDERS: ATTEND Internal Medicine
DX: E87.8 Other disorders of electrolyte and fluid balance, not elsewhere classified (principal); D64.9 Anemia, unspecified
CPT/HCPCS: 80048; 82728; 83540; 83550; 85027; J1642; 36591

== ENCOUNTER → 2020-05-23 | Outpatient (CLI) | payer MEDICARE ==
--- NOTE | 2020-05-26 08:41 | CT ---
EXAMINATION TYPE: CT mastoid wo con DATE OF EXAM: 05/23/2020 COMPARISON: None HISTORY: Right sided ear pain radiating down to mandible. CT DLP: 190 mGycm, Automated exposure control for dose reduction was used. CONTRAST: Performed injected with 0 mL of Isovue 300. TECHNIQUE: Axial images were obtained at 1 mm thick sections. Reconstructed images are reviewed on [employer] computer in the coronal plane. FINDINGS: Torus tubarius and fossa of Rosenmuller are normal. Customer Engagement Analyst spaces are normal. Internal auditory c anals and cerebellar pontine angles appear normal. No expansion or erosion is evident. Mastoid air cells: Clear. No fluid accumulation is evident. No septal erosion is evident. Semicircula r canals and cochlea are normal. There is a high riding right jugular bulb. Incus and malleus have no rmal orientation. Ostiomeatal units are patent. A right nyla bullosa is present. Portions of the paranasal sinuses vi sualized are clear. Temporomandibular junctions appear normal. Middle ears are clear. IMPRESSIONS: 1. Normal bilateral mastoid air cells.
== END | disposition home or self-care (01) ==
LOC: RADCTMAIN 14:52
PROVIDERS: ATTEND Nurse Practitioner Family
DX: H70.90 Unspecified mastoiditis, unspecified ear (principal)
CPT/HCPCS: 70486

== ENCOUNTER → 2021-01-07 | Outpatient (CLI) | payer MEDICARE ==
[2021-01-07 14:23] LABS: Albumin 4.4 g/dL (3.5-5.0); Calcium 8.9 mg/dL (8.4-10.2); Magnesium 1.2 mg/dL (1.6-2.3); Potassium 3.9 mmol/L (3.5-5.1); Total Bilirubin 0.4 mg/dL (0.2-1.3)
[2021-01-07 14:35] LABS: T4, Free (Free Thyroxine) 1.07 ng/dL (0.78-2.19)
[2021-01-08 17:11] LABS: Chol/HDL Ratio 3.06 Ratio; HDL Cholesterol 73.1 mg/dL (40.00-60.00); LDL Cholesterol,Calculated 109.9 mg/dL (0.0-131.0)
== END | disposition home or self-care (01) ==
LOC: PROCWHC3 12:42
PROVIDERS: ATTEND Family Medicine
DX: E07.9 Disorder of thyroid, unspecified (principal); I10 Essential (primary) hypertension; M12.9 Arthropathy, unspecified; R06.00 Dyspnea, unspecified
CPT/HCPCS: 84439; 80061; 80053; 84443; 83735; 83036; 36591; J1642

== ENCOUNTER → 2021-01-07 | Outpatient (CLI) | payer MEDICARE ==
--- NOTE | 2021-01-07 15:21 | XR ---
EXAMINATION TYPE: XR chest 2V DATE OF EXAM: 01/07/2021 COMPARISON: Chest x-ray 09/13/2018 HISTORY: Dyspnea on exertion, RO6.09 TECHNIQUE: Frontal and lateral views of the chest are obtained. FINDINGS: There is no focal air space opacity, pleural effusion, or pneumothorax seen. The cardiac silhouette size is within normal limits. Right jugular central venous catheter shows the distal tip o verlying the superior vena cava. There is dense. Postoperative changes are noted in the gastroesophag eal junction. There is a spinal curvature. Right hemidiaphragm remains elevated. Arthropathies noted in the shoulders. The osseous structures are intact. IMPRESSION: No acute cardiopulmonary process.
== END | disposition home or self-care (01) ==
LOC: RADXRWHC 12:21
PROVIDERS: ATTEND Family Medicine
DX: R06.00 Dyspnea, unspecified (principal)
CPT/HCPCS: 71046

== ENCOUNTER → 2021-01-26 | Outpatient (CLI) | payer MEDICARE ==
--- NOTE | 2021-02-19 13:41 | ECHOF ---
Referral Reason:R06.09 dyspnea MEASUREMENTS -------- HEIGHT: 152.4 cm WEIGHT: 68.0 kg BP: 120/80 RVIDd: 2.4 cm (< 3.3) IVSd: 1.1 cm (0.6 - 1.1) LVIDd: 3.8 cm (3.9 - 5.3) LVPWd: 1.1 cm (0.6 - 1.1) IVSs: 1.6 cm LVIDs: 2.7 cm LVPWs: 1.7 cm LA Diam: 2.6 cm (2.7 - 3.8) LAESV Index (A-L): 21.90 ml/m Ao Diam: 2.4 cm (2.0 - 3.7) AV Cusp: 1.7 cm (1.5 - 2.6) MV EXCURSION: 14.577 mm (> 18.000) MV EF SLOPE: 27 mm/s (70 - 150) EPSS: 0.5 cm MV E Harpreet: 0.68 m/s MV DecT: 459 ms MV A Harpreet: 1.06 m/s MV E/A Ratio: 0.64 RAP: 5.00 mmHg RVSP: 33.67 mmHg FINDINGS -------- Sinus rhythm. This was a technically adequate study. The left ventricular size is normal. There is borderline concentric left ventricular hypertrophy. Overall left ventricular systolic function is normal with, an EF between 60 - 65 %. The right ventricle is normal in size. Normal LA size by volume 22+/-6 ml/m2. The right atrium is normal in size. Interatrial and interventricular septum intact. The aortic valve is trileaflet, and appears structurally normal. No aortic stenosis or regurgitation. The mitral valve leaflets are mildly thickened. There is trace to mild mitral regurgitation. Mild tricuspid regurgitation present. There is borderline pulmonary hypertension. The right ventr icular systolic pressure, as measured by Doppler, is 33.67mmHg. Trace/mild (physiologic) pulmonic regurgitation. The aortic root size is normal. Normal inferior vena cava with normal inspiratory collapse consistent with estimated right atrial pre ssure of 5 mmHg. There is no pericardial effusion. CONCLUSIONS -------- 1. The left ventricular size is normal. 2. There is borderline concentric left ventricular hypertrophy. 3. Overall left ventricular systolic function is normal with, an EF between 60 - 65 %. 4. The aortic valve is trileaflet, and appears structurally normal. No aortic stenosis or regurgitati on. 5. The mitral valve leaflets are mildly thickened. 6. There is trace to mild mitral regurgitation. 7. Mild tricuspid regurgitation present. 8. There is borderline pulmonary hypertension. 9. The right ventricular systolic pressure, as measured by Doppler, is 33.67mmHg. 10. Trace/mild (physiologic) pulmonic regurgitation. 11. There is no pericardial effusion. ARRESTING GEAR OPERATOR: Coretta Fuentes RDCS
== END | disposition home or self-care (01) ==
LOC: RADECHMAIN 14:06
PROVIDERS: ATTEND Family Medicine
DX: I34.0 Nonrheumatic mitral (valve) insufficiency (principal); I07.1 Rheumatic tricuspid insufficiency; I27.20 Pulmonary hypertension, unspecified; I37.1 Nonrheumatic pulmonary valve insufficiency
CPT/HCPCS: 93306

== ENCOUNTER → 2021-01-27 | Outpatient (CLI) | payer MEDICARE ==
--- NOTE | 2021-01-28 04:54 | MR ---
EXAMINATION TYPE: MR shoulder RT wo con DATE OF EXAM: 01/27/2021 COMPARISON: None HISTORY: Right shoulder pain Multiplanar multiecho imaging of the right shoulder without contrast. There is metal artifact from previous surgery at the greater tuberosity of the humerus. There is yohana re narrowing of the subacromial joint space with obliteration of the space. There is retraction of th e supraspinatus tendon. There is elbow joint effusion and extensive spurring on the humeral head. The re is also moderate spurring of the glenoid. There is wavy appearance of the subscapularis tendon. Bi ceps tendon is not well defined. There is probably a partial tear. I see no fracture line. 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 Large rotator cuff tear with retraction of the suprasp inatus tendon. Severe narrowing of the subacromial joint space and also the glenohumeral joint space. This probably partial tear of the biceps tendon. There is partial tear of the subscapularis tendon.
== END | disposition home or self-care (01) ==
LOC: RADMRIMAIN 13:01
PROVIDERS: ATTEND Orthopaedic Surgery
DX: M75.01 Adhesive capsulitis of right shoulder (principal)

== ENCOUNTER → 2021-08-05 | Outpatient (CLI) | payer MEDICARE ==
--- NOTE | 2021-08-05 13:59 | MM ---
Reason for exam: clinical finding. Last mammogram was performed 7 years and 5 months ago. History: Patient is postmenopausal. Family history of breast cancer in paternal aunt, breast cancer in maternal aunt, and premenopausal breast cancer in mother. Excisional biopsy of the left breast. Took hormonal contraceptives for 5 years. Physical Findings: A clinical breast exam by your physician is recommended on an annual basis and results should be correlated with mammographic findings. MG 3D Diag Mammo W/Cad DIXIE Bilateral CC and MLO view(s) were taken. Prior study comparison: February 19, 2014, bilateral MG screening mammo w CAD. There are scattered fibroglandular densities. There are benign appearing round, vascular calcifications bilaterally. There is chronic nodularity bilaterally. Stable prominent right axillary lymph nodes. Results were given to the patient verbally at the time of the exam. ASSESSMENT: Incomplete: need additional imaging evaluation, BI-RAD 0 RECOMMENDATION: Ultrasound of both breasts. (palpables)
--- NOTE | 2021-08-05 14:04 | USB ---
Reason for exam: clinical finding. History: Patient is postmenopausal. Family history of breast cancer in paternal aunt, breast cancer in maternal aunt, and premenopausal breast cancer in mother. Excisional biopsy of the left breast. Took hormonal contraceptives for 5 years. Physical Findings: A clinical breast exam by your physician is recommended on an annual basis and results should be correlated with mammographic findings. US Breast Limited BILAT Right limited breast ultrasound including focal area of concern, retroareolar and axilla demonstrates a 4.1 x 1.5 x 2.8cm oval, circumscribed, solid, hypoechoic, avascular lesion at the axilla, possible lymph node on mammogram is not a significant change from 2014 mammogram. Left limited breast ultrasound including focal area of concern, retroareolar and axilla demonstrates a 3.3 x 1.1 x 2.8cm oval, circumscribed, solid, hyperechoic lesion at 4 o'clock, unchanged on mammogram, possible fibroadenoma. Results were given to the patient verbally at the time of the exam. ASSESSMENT: Probably benign, BI-RAD 3 RECOMMENDATION: Ultrasound of both breasts in 6 months.
== END | disposition home or self-care (01) ==
LOC: RADMAMWWP 13:01
PROVIDERS: ATTEND Surgery
DX: N63.0 Unspecified lump in unspecified breast (principal)
CPT/HCPCS: 77066; 76642; G0279; 77062